=== PATIENT | female | born 2000 | race African-American/Black ===

== ENCOUNTER 2019-12-13 19:40 | Emergency (ER) | payer OTHER, SELFPAY ==
--- NOTE | 2019-12-13 20:40 | RAD REPORT ---
EXAM DESCRIPTION: RAD - Tib Fib Right - 12/13/2019 8:24 pm CLINICAL HISTORY: needle stick with possible foreign body COMPARISON: No comparisons FINDINGS: No bone or joint abnormality identified. In the anterolateral soft tissues lower right leg, anterior to the fibula, there is a 2 centimeter lo ng needle in the soft tissues. No bone involvement.
--- NOTE | 2019-12-13 20:47 | ER ---
Nurse's Notes [facility] Name: Saloni Harrington Age: 19 yrs Sex: Female : 2000 Arrival Date: 12/13/2019 Time: 19:42 Bed 19 Private MD: Diagnosis: Puncture wound with foreign body of lower leg-right Presentation: 12/12 19:49 Chief complaint: Patient states: "half a sewing needle stuck in my R leg". Coronavirus ca1 screen: Proceed with normal triage. Patient denies a cough. Patient denies shortness of breath or difficulty breathing. Patient denies measured and/or subjective temperature greater than 100.4F prior to today's visit. Patient denies travel on a cruise ship or to a country the [facility] currently lists as an affected area. Patient denies contact with known and/or suspected case of COVID-19. Ebola Screen: Patient negative for fever greater than or equal to 101.5 degrees Fahrenheit, and additional compatible Ebola Virus Disease symptoms Patient denies exposure to infectious person. Patient denies travel to an Ebola-affected area in the 21 days before illness onset. No symptoms or risks identified at this time. Initial Sepsis Screen: Does the patient meet any 2 criteria? No. Patient's initial sepsis screen is negative. Does the patient have a suspected source of infection? No. Patient's initial sepsis screen is negative. Risk Assessment: Do you want to hurt yourself or someone else? Patient reports no desire to harm self or others. Onset of symptoms was December 13, 2019. 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 - Social history:: Smoking status: Patient denies any tobacco usage or history of. Screenin:00 Abuse screen: Denies threats or abuse. Denies injuries from another. Nutritional wh screening: No deficits noted. Tuberculosis screening: No symptoms or risk factors identified. Fall Risk None identified. Assessment: 20:02 General: Appears in no apparent distress. Behavior is calm, cooperative, appropriate wh for age. Pain: Complains of pain in lateral aspect of right calf Pain does not radiate. Pain currently is 7 out of 10 on a pain scale. Quality of pain is described as aching. Neuro: Level of Consciousness is awake, alert, obeys commands, Oriented to person, place, time, situation, Appropriate for age. Cardiovascular: Capillary refill < 3 seconds. Respiratory: Airway is patent Respiratory effort is even, unlabored, Respiratory pattern is regular, symmetrical. GI: Abdomen is flat, non-distended. : No signs and/or symptoms were reported regarding the genitourinary system. EENT: No signs and/or symptoms were reported regarding the EENT system. Derm: Skin is intact, is healthy with good turgor, Skin is pink, warm \\T\\ dry. normal. Musculoskeletal: Circulation, motion, and sensation intact. 21:03 Reassessment: Patient appears in no apparent distress at this time. No changes from previously documented assessment. Patient and/or family updated on plan of care and expected duration. Pain level reassessed. Patient is alert, oriented x 3, equal unlabored respirations, skin warm/dry/pink. Vital Signs: 19:49 BP 126 / 84; Pulse 83; Resp 15 S; Temp 98.6(TE); Pulse Ox 97% on R/A; Weight 66.22 kg ca1 (R); Height 5 ft. 3 in. (160.02 cm) (R); Pain 8/10; 21:00 BP 118 / 78; Pulse 82; Resp 18; Pulse Ox 99% on R/A; wh 19:49 Body Mass Index 25.86 (66.22 kg, 160.02 cm) ca1 ED Course: 19:42 Patient arrived in ED. ds1 19:50 Triage completed. ca1 19:51 Arm band placed on right wrist. ca1 19:52 Juan David Maddox PA is PHCP. cp 19:52 Gabriele Goff MD is Attending Physician. cp 20:00 Patient has correct armband on for positive identification. Bed in low position. Call light in reach. Side rails up X 1. Pulse ox on. NIBP on. 20:04 Kristy Alexandra is Primary Nurse. wh 20:24 XRAY Tib Fib RIGHT In Process Unspecified. EDMS 20:44 Sergey Stephens MD is Referral Physician. cp 21:02 No provider procedures requiring assistance completed. Patient did not have IV access during this emergency room visit. Administered Medications: 20:13 Not Given (Patient Refused; Pt with updated vaccine): Tetanus-Diphtheria Toxoid Adult 0.5 ml IM once 20:50 Drug: HYDROcodone-acetaminophen 5 mg-325 mg 1 tabs {Note: RASS 0.} Route: PO; 21:04 Follow up: Response: No adverse reaction; Pain is decreased; RASS: Alert and Calm (0) Outcome: 20:45 Discharge ordered by MD. cp 21:02 Discharged to home via wheelchair, with friend. 21:02 Condition: stable 21:02 Condition: good 21:02 Discharge instructions given to patient, Instructed on discharge instructions, follow up and referral plans. no drinking with medication, no driving heavy equipment, medication usage, wound care, POC Demonstrated understanding of instructions, follow-up care, medications, wound care, Prescriptions given X 2. 21:04 Patient left the ED. Signatures: Dispatcher [employer] EDAL Colleen Najera ds1 Juan David Maddox, Kristy Keiht cp Mariah Preciado RN RN ca1
--- NOTE | 2019-12-13 20:47 | EDPHYS ---
Physician Documentation [facility] Name: Saloni Harrington Age: 19 yrs Sex: Female : 2000 Arrival Date: 12/13/2019 Time: 19:42 Bed 19 Private MD: ED Physician Gabriele Goff HPI: 12/12 20:00 This 19 yrs old Black Female presents to ER via Wheelchair with complaints of Foreign cp Body - In Leg. 20:00 The patient presents with needle stick with possible foreign body right lateral lower cp leg. The complaints affect the lateral aspect of right calf. 20:00 Patient reports she sat down on couch and noticed sewing needle pierced skin lateral cp right lower leg. Patient attempted to remove needle, but noticed needle broke and believes part of needle remains embedded in right lower leg. 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 - Social history:: Smoking status: Patient denies any tobacco usage or history of. ROS: 20:05 Skin: Positive for puncture, of the lateral aspect of right calf. cp 20:05 Eyes: Negative for injury, pain, redness, and discharge. cp 20:05 Constitutional: Negative for body aches, chills, fever. 20:05 Cardiovascular: Negative for chest pain. 20:05 Respiratory: Negative for cough, shortness of breath, wheezing. 20:05 Abdomen/GI: Negative for abdominal pain. 20:05 Neuro: Negative for altered mental status, headache, weakness. 20:05 All other systems are negative. Exam: 20:10 Constitutional: The patient appears in no acute distress, alert, awake, non-toxic, well cp developed, well nourished. 20:10 Skin: injury, that can be described as without bleeding, tender to palpation, mild cp swelling noted, puncture(s), that are deep, of the lateral aspect of right calf. Vital Signs: 19:49 BP 126 / 84; Pulse 83; Resp 15 S; Temp 98.6(TE); Pulse Ox 97% on R/A; Weight 66.22 kg ca1 (R); Height 5 ft. 3 in. (160.02 cm) (R); Pain 8/10; 21:00 BP 118 / 78; Pulse 82; Resp 18; Pulse Ox 99% on R/A; wh 19:49 Body Mass Index 25.86 (66.22 kg, 160.02 cm) ca1 MDM: 19:53 Patient medically screened. cp 20:30 Differential diagnosis: open fracture, foreign body, puncture wound. cp 20:45 Data reviewed: vital signs, nurses notes, radiologic studies, plain films, I have cp discussed the patient's presentation/case with the attending Emergency Department Physician; and as a result, I will discharge patient. 20:45 Counseling: I had a detailed discussion with the patient and/or guardian regarding: the cp historical points, exam findings, and any diagnostic results supporting the discharge/admit diagnosis, radiology results, the need for outpatient follow up, a general surgeon, to return to the emergency department if symptoms worsen or persist or if there are any questions or concerns that arise at home. Response to treatment: the patient's symptoms have markedly improved after treatment, VSS. Pain improved. Will discharge to home for continued monitoring. 12/12 20:51 Order name: Urine Dipstick--Ancillary (enter results) [facility] 12/12 20:51 Order name: Urine --Ancillary (enter results) [facility] 12/12 20:01 Order name: XRAY Tib Fib RIGHT; Complete Time: 20:43 cp 12/12 20:44 Interpretation: Report reviewed. 12/12 20:23 Order name: Urine Test (obtain specimen); Complete Time: 20:51 12/12 20:23 Order name: Urine Dipstick-Ancillary (obtain specimen); Complete Time: 20:51 cp 12/12 20:47 Order name: Wound Care; Complete Time: 20:55 cp 12/12 20:47 Order name: Crutches; Complete Time: 20:55 cp Administered Medications: 20:13 Not Given (Patient Refused; Pt with updated vaccine): Tetanus-Diphtheria Toxoid Adult wh 0.5 ml IM once 20:50 Drug: HYDROcodone-acetaminophen 5 mg-325 mg 1 tabs {Note: RASS 0.} Route: PO; wh 21:04 Follow up: Response: No adverse reaction; Pain is decreased; RASS: Alert and Calm (0) wh Disposition: 21:05 Chart complete. cp 12/13 03:12 Co-signature as Attending Physician, Gabriele Goff MD I agree with the assessment and tw4 plan of care. Disposition: 12/13/19 20:45 Discharged to Home. Impression: Puncture wound with foreign body of lower leg - right. - Condition is Stable. - Discharge Instructions: Puncture Wound. - Prescriptions for Keflex 500 mg Oral Capsule - take 1 capsule by ORAL route every 8 hours for 10 days; 30 capsule. Tylenol- Codeine #3 300-30 mg Oral Tablet - take 2 tablets by ORAL route every 6 hours As needed; 20 tablet. - Medication Reconciliation Form, Thank You Letter, Antibiotic Education, Prescription Opioid Use form. - Follow up: Sergey Stephens MD; When: 2 - 3 days; Reason: Wound Recheck. - Problem is new. - Symptoms have improved. Signatures: Dispatcher [employer] EDMS Juan David Maddox PA PA Kristy Alexandra Gabriele Goff MD MD tw4 Mariah Preciado RN RN ca1 Corrections: (The following items were deleted from the chart) 12/12 20:03 20:01 This 19 yrs old Black Female presents to ER via Wheelchair with complaints of cp Foreign Body - In Leg. cp 21:04 20:45 12/13/2019 20:45 Discharged to Home. Impression: Puncture wound with foreign body wh of lower leg - right. Condition is Stable. Forms are Medication Reconciliation Form, Thank You Letter, Antibiotic Education, Prescription Opioid Use. Follow up: Dr. Sergey Stephens; When: 2 - 3 days; Reason: Wound Recheck. Problem is new. Symptoms have improved. cp
[2019-12-13] MEDS ORDERED: HYDROCODONE/APAP 5/325 MG TAB ONE (20:48)
[2019-12-13 21:11] VITALS: TEMP 98.6
[2019-12-13 21:12] VITALS: BP 118/78; O2SAT 99
[2019-12-13 22:02] LABS: Urine Blood 3+ (NEG); Urine Glucose NEGATIVE (NEG); Urine Protein TRACE (NEG); Urine Specific Gravity >1.030 (1.005-1.030)
== END 2019-12-13 21:04 | disposition home or self-care (01) ==
LOC: ER 19:40
DX: S81.831A Puncture wound without foreign body, right lower leg, initial encounter (principal); W26.8XXA Contact with other sharp object(s), not elsewhere classified, initial encounter; W45.8XXA Other foreign body or object entering through skin, initial encounter; Y93.89 Activity, other specified; Y92.018 Other place in single-family (private) house as the place of occurrence of the external cause
CPT/HCPCS: 81003; 81025; 99284

== ENCOUNTER 2020-04-15 07:26 | Emergency (ER) | payer OTHER, SELFPAY ==
--- OUTSIDE RECORDS SUMMARY | 2020-04-15 07:52 | XMS REPORT | Summary of Care ---
:2000 Author Organization [facility] - Health Address [address] [place] [address] Care Team Providers Name Role Phone Pcp, Patient Does Not Have A Primary Care Provider +[id number] 0-0000 Encounter Details Date Type Department Care Team Description 03/19/2020 Orders Only [facility] Doctor Unassigned, No [address] [facility] [place] [address] [address] [place] [address] Allergies Not on Filedocumented as of this encounter (statuses as of 03/19/2020) Medications Not on filedocumented as of this encounter (statuses as of 03/19/2020) Active Problems Not on filedocumented as of this encounter (statuses as of 03/19/2020) Social History Tobacco Use Types Packs/Day Years Used Date Never Assessed Sex Assigned at Date Recorded Not on file documented as of this encounter Last Filed Vital Signs Not on filedocumented in this encounter Plan of Treatment Date Type Specialty Care Team Description 03/19/2020 Initial Visit [facility] Layla Hannah FNP Arrived [address] [place], [place] [address] [phone] Health Maintenance Due Date Last Done Comments VARICELLA VACCINES (1 of 2 - 2-dose 02/24/2000 childhood series) MENINGOCOCCAL B VACCINES (1 of 2 - 2009 Risk Bexsero 2-dose series) HPV VACCINES (1 - 2-dose series) 2010 Depression Screening 2011 WELL CARE VISIT: 12-21 YEARS 2011 (yearly) CHLAMYDIA SCREENING 2015 DTaP,Tdap,and Td Vaccines (1 - 2018 Tdap) PAP SMEAR 02/24/2020 INFLUENZA VACCINE (#1) 2020 MENINGOCOCCAL VACCINE Aged Out No longer eligible based on patient's age to complete this topic PNEUMOCOCCAL 0-64 YEARS COMBINED Aged Out No longer eligible based on SERIES patient's age to complete this topic documented as of this encounter Procedures Procedure Name Priority Date/Time Associated Diagnosis Comme nts REPORT OF Routine 03/19/2020 12:01 AM CDT documented in this encounter Results Not on filedocumented in this encounter Insurance Payer Benefit Plan / Subscriber ID Effective Phone Address [facility] [employer] Dates KYLE WRIGHT [id number] 2020-[address] Medic [place] [id number] [place]GED MEDICAID [place], [place] documented as of this encounter
--- OUTSIDE RECORDS SUMMARY | 2020-04-15 07:52 | XMS REPORT | Summary of Care ---
:2000 Author Organization [facility] Address [address] [place] [id number] Care Team Providers Name Role Phone Pcp, Patient Does Not Have A Primary Care Provider +[id number] 0-0000 Reason for Visit Reason Comments Appointment Referral/consult Encounter Details Date Type Department Care Team Description [facility] [facility]; [facility] Referral/consult [id number] [place], [place] [phone] Allergies No Known Allergiesdocumented as of this encounter (statuses as of 03/19/2020) Medications Medication Sig Dispensed Refills Start Date End Date Status inhaler,assist 0 Activ e device,accesory (INHALER,ASSIST DEVICES,ACCESS MISC) PNV 67-iron ps-folate Take 1 capsule by 30 capsule 11 0 Active no.1-dha (VITAFOL mouth daily. ULTRA) 29 mg iron- 1 mg-200 mg CapIndications: Supervision of high risk in first trimester documented as of this encounter (statuses as of 03/19/2020) Active Problems Problem Noted Date Supervision of high risk in first trimester 03/19/2020 History of marijuana use 03/19/2020 Bipolar 1 disorder 03/19/2020 Depression with anxiety 03/19/2020 Adopted 03/19/2020 Asthma affecting in first trimester 03/19/20 20 BMI 25.0-25.9,adult 03/19/2020 Estimated Date of Delivery Comments Yes 11/13/2020 Based on last menstr ual period of 02/07/2020 (Exact Date) documented as of this encounter (statuses as of 03/19/2020) Immunizations Name Administration Dates Next Due Influenza Virus Vaccine Quad .5 mL IM 6+ MO 03/19/2020 documented as of this encounter Social History Tobacco Use Types Packs/Day Years Used Date Never Smoker Smokeless Tobacco: Never Used Alcohol Use Drinks/Week oz/Week Comments Not Currently Estimated Date of Delivery Comments Yes 11/13/2020 Based on last menstr ual period of 02/07/2020 (Exact Date) Sex Assigned at Date Recorded Not on file documented as of this encounter Last Filed Vital Signs Not on filedocumented in this encounter Miscellaneous Notes Telephone Encounter - Ata Perez RN - 03/19/2020 4:51 PM CDTPatient notified to keep USG as scheduled. Pt verbalized understanding. ATA PEREZ RN 03/19/2020 4:51 PM Telephone Encounter - Layla Hannah FNP - 03/19/2020 4:43 PM CDTDoes not need US before next appointment. I probably told her we would get her appointment scheduledbefore her next visit, meaning the appointment would be made, not meaning the date of the US needed to be before next appointment. Telephone Encounter - Itzel Covarrubias - 03/19/2020 3:18 PM Ifeomasonny Harrington is a 20 year old female Patient is calling because she was told that her US needed to be before her appointment on 04/16 butwhen calling US they scheduled her for 05/06. They told her that they do not do US before 12 weeks and if it was needed before then that the provider needed to call them and verification. Please contactpatient if needed at [phone] (home) KF documented in this encounter Plan of Treatment Date Type Specialty Care Team Description 04/16/2020 Routine Visit [facility] Layla Hannah FNP [address] [place], [place] [address] [phone] 05/06/2020 Opticianry Teacher Visit Maternal Medicine 05/06/2020 Opticianry Teacher Visit [facility] Health Maintenance Due Date Last Done Comments PNEUMOCOCCAL 0-64 YEARS COMBINED 2005 SERIES (1 of 1 - PPSV23) INFLUENZA VACCINE (#1) 2020 Postponed from 03/03/2020 (Refused) HPV VACCINES (1 - 2-dose series) 03/10/2021 Postponed from 2010 ( or Rosibel astfeeding) CHLAMYDIA SCREENING 03/19/2021 03/19/2020 DTaP,Tdap,and Td Vaccines (1 - 03/19/2021 P ostponed from 2018 Tdap) (Alternative Gelacio delines) Depression Screening 03/19/2021 03/19/2020 MENINGOCOCCAL B VACCINES (1 of 2 - 03/19/2021 Postponed from 2009 Risk Bexsero 2-dose series) (Pre gnant or ) VARICELLA VACCINES (1 of 2 - 03/19/2021 Pos tponed from 02/24/2000 2-dose childhood series) (Pregna nt or ) WELL CARE VISIT: 12-21 YEARS 03/19/2021 03/19/2020 (yearly) PAP SMEAR 03/19/2023 03/19/2020 MENINGOCOCCAL VACCINE Aged Out No longer eligible based on patient's age to complete this topic documented as of this encounter Results Not on filedocumented in this encounter Insurance Payer Benefit Plan / Subscriber ID Effective Phone Address [employer] Dates KYLE WRIGHT [id number] 2020-Prese [address] Medic [place] [id number] [place] MED[place] documented as of this encounter
--- OUTSIDE RECORDS SUMMARY | 2020-04-15 07:52 | XMS REPORT | Summary of Care ---
:2000 Author Organization [facility] Address [address] [place] [address] Care Team Providers Name Role Phone Pcp, Patient Does Not Have A Primary Care Provider +[id number] 0-0000 Reason for Referral (Routine) Status Reason Specialty Diagnoses / Referred By Referred To Procedures Contact Contact New Request Maternal Diagnoses Supervision of high risk in first trimester Layla Hannah Procedures CONSULT MATERNAL MEDICINE ULTRASOUND Preferred Location: YANA Monroy [address] [place] [address] Reason for Visit Reason Comments Initial Visit Encounter Details Date Type Department Care Team Description 03/19/2020 Initial [facility]- Layla Hannah pervision of high risk in first trimester (Primary Dx); Visit [facility] History of marijuana use; [address] Bipolar 1 disorder; [facility] Depression with anxiety; [place], [place] Adopted; [id number] Asthma affecting in first trim rell; [phone] BMI 25.0-25.9,adult; [phone] Screening for v iral disease; (Fax) Need for prophy lactic vaccination and inoculation against influenza Allergies No Known Allergiesdocumented as of this [...] of this encounter Last Filed Vital Signs Vital Sign Reading Time Taken Comments Blood Pressure 135/79 03/19/2020 1:46 PM CDT Pulse 78 03/19/2020 1:46 PM CDT Temperature 37 C (98.6 F) 03/19/2020 1:46 PM CDT Respiratory Rate 16 03/19/2020 1:46 PM CDT Oxygen Saturation - - Inhaled Oxygen Concentration - - Weight 65.9 kg (145 lb 5 oz) 03/19/2020 1:46 PM CDT Height 160 cm (5' 3") 03/19/2020 1:46 PM CDT Body Mass Index 25.74 03/19/2020 1:46 PM CDT documented in this encounter Progress Notes Layla Hannah, COREMAKER BENCH - 03/19/2020 1:45 PM CDT Chief complaint: Chief Complaint Patient presents with Initial Visit CC: Initial Visit Saloni Harrington is a 20 year old, , Black or female. Patient's last menstrual period was 02/07/2020 (exact date). She is 5w6d with a susptected intrauterine . Her Estimated Date of Delivery: 11/13/20. She is being seen today for her first obstetrical visit. She has no complaints today. Denies current physical, emotional or sexual abuse. Patient denies recent foreign travel. Pt has a history of bipolar and anxiety. Reports last on meds in 2018. She reports that mood is currently stable and she declines need for medication. Denies SI. History of asthma, worse in childhood. Has had to be hospitalized in the past with exacerbations, last in 2017. Currently she is only using an albuterol rescue inhaler PRN, using about twice per week. She reports symptoms are generally worse at night and worsen in colder months. OB History T0 L0 SAB0 TAB0 Ectopic0 Multiple0 Live Births0 Name of Baby 1: Not recorded Date: Not recorded GA: Not recorded Delivery: Not recorded Apgar1: Not recorded Apgar5: Not recorded Living: Not recorded Histories OB History Para Term AB Living 1 SAB TAB Ectopic Multiple Live Births # Outcome Date GA Lbr Kenneth/2nd Weight Sex Delivery Anes PTL Lv 1 Current Past Medical History: Diagnosis Date Anxiety 2018 not on meds Asthma 1999 has rescue inhaler Bipolar 1 disorder 2018 not on meds Bipolar 1 disorder 03/19/2020 Depression 2018 not on meds IBS (irritable bowel syndrome) 2017 Substance abuse 2019 smokes marijuana occasionaly, reports quit on 03/14/2020 Family History Adopted: Yes Problem Relation Age of Onset Asthma Sister Heart Sister Family Status Relation Name Status Sis Alive History reviewed. No pertinent surgical history. Social History Socioeconomic History Marital status: Single Spouse name: Not on file Number of children: Not on file Years of education: Not on file Highest education level: Not on file Occupational History Not on file Social Needs Financial resource strain: Not on file Food insecurity Worry: Not on file Inability: Not on file Transportation needs Medical: Not on file Non-medical: Not on file Tobacco Use Smoking status: Never Smoker Smokeless tobacco: Never Used Substance and Sexual Activity Alcohol use: Not Currently Drug use: Yes Types: Marijuana Comment: smoked last 03/14/2020 Sexual activity: Yes Partners: Male control/protection: None Comment: Last intercourse: 03/17/2020 Lifestyle Physical activity Days per week: Not on file Minutes per session: Not on file Stress: Not on file Relationships Social connections Talks on phone: Not on file Gets together: Not on file Attends protestant service: Not on file Active member of club or organization: Not on file Attends meetings of clubs or organizations: Not on file Relationship status: Not on file Intimate partner violence Fear of current or ex partner: Not on file Emotionally abused: Not on file Physically abused: Not on file Forced sexual activity: Not on file Other Topics Concern Not on file Social History Narrative Patient lives alone. Patient feels safe at home. Social History Substance and Sexual Activity Sexual Activity Yes Partners: Male control/protection: None Comment: Last intercourse: 03/17/2020 Genetic Screen Autism / Mental Retardation: No Home Disease: No Congenital Heart Defect: No Cystic Fibrosis: No Down Syndrome: No Familial Dysautonomia: No Hemophilia or other Blood Disorders: No Dustin Chorea: No Maternal Metabolic Disorder--specify (eg. Type 1 Diabetes, PKU): No Muscular Dystrophy: No Neural Tube Defect: No Recurrent Loss or a Stillbirth: No Sickle Cell Disease or Trait: No Master Sachs: No Teratological Substances (specify type & strength/dose) since LMP: No Thalassemia: No Other Inherited Genetic or Chromosomal Disorder (specify): No No Significant History of Genetic Disorders: No Significant History of Genetic Disorders Labs Labs are pending. Radiology Radiology pending. Allergies Saloni has No Known Allergies. Medications Saloni has a current medication list which includes the following prescription(s): inhaler,assist device,accesory and vitafol ultra. Review of Systems Constitutional: Negative. Negative for appetite change, fatigue and fever. HENT: Negative. Eyes: Negative. Negative for visual disturbance. Respiratory: Negative. Breasts: Negative. Cardiovascular: Negative. Negative for palpitations and leg swelling. Gastrointestinal: Negative. Negative for abdominal pain, constipation, diarrhea, nausea and vomiting. Genitourinary: Negative. Negative for dysuria, vaginal bleeding, vaginal discharge and pelvic pain. Musculoskeletal: Negative. Skin: Negative. Negative for rash. Neurological: Negative. Negative for dizziness, light-headedness and headaches. Psychiatric/Behavioral: Negative. Endocrine: Endocrine negative BP 135/79 (BP Location: Right arm, Patient Position: Sitting, BP CUFF SIZE: Adult Medium) | Pulse 78 | Temp 37 C (98.6 F) (Oral) | Resp 16 | Ht 5' 3" (1.6 m) | Wt 145 lb 5 oz (65.9 kg) | LMP 02/07/2020 (Exact Date) | BMI 25.74 kg/m Pregravid BMI: 23.92 Physical Exam Vitals reviewed. Constitutional: She is oriented to person, place, and time. She appears well- developed and well-nourished. Her body habitus is normal. See flowsheet Neck: No thyroid nodules and no thyromegaly palpated. Cardiovascular: Regular rate and rhythm. No murmur auscultated. No peripheral edema present. Pulmonary/Chest: Breath sounds clear to auscultation. Normal inspiratory effort. Abdominal: Abdomen is soft. No mass palpated. No tenderness present. There is no hepatosplenomegaly. Neuro/Psychiatric: She has a normal mood and affect. She is oriented to person, place, and time. Skin: Skin normal. No lesion and no rash present. Genitourinary Comments: Chaperoned by: Donny Chun MA Breast: Right breast exhibits no mass, no nipple discharge and no tenderness. Left breast exhibits no mass, no nipple discharge and no tenderness. Normal left breast and normal right breast External genitalia: Normal external genitalia appropriate for age. No labial lesion. Bladder: No tenderness. Normal bladder Vagina:Normal vagina. No lesion inspected. No abnormal vaginal discharge found. No lesions in thevagina. Cervix: Normal cervix. No lesion. No tenderness and no discharge present. Uterus: Uterus is normal size, normal position and non-tender. Normal uterus Adnexa: Right adnexa without tenderness. Left adnexa without tenderness. Normal left adnexa and normal right adnexa PHYSICAL: General Exam: HEENT: Normal Thyroid: Normal Lymph Node: Normal Neurological: Normal Heart: Normal Lungs: Normal Breasts: Normal Abdomen: Normal Skin: Normal Extremities: Normal Pelvic Exam: Vulva: Normal Vagina: Normal Cervix: Normal Membrane status: Intact Uterus: 6 Weeks Adnexa: Normal Rectum: Normal Spines: Average Subpubic Arch: Normal Assessment/Plan 1. Supervision of high risk in first trimester 5w6d by LMP New OB packet reviewed TWG discussed Discussed recommendation for social distancing and PPE use Initiate Vitamins Increase Fluid Intake. Minimum of 8 water bottles daily. Dating US and NT scan ordered - POCT TEST - POCT URINALYSIS W/O SPECIFIC GRAVITY - PNV 67-iron ps-folate no.1-dha (VITAFOL ULTRA) 29 mg iron- 1 mg-200 mg Cap; Take 1 capsule by mouth daily. Dispense: 30 capsule; Refill: 11 - POCT URINALYSIS W/O SPECIFIC GRAVITY; Standing - CONSULT MATERNAL MEDICINE ULTRASOUND Preferred Location: [place] - CBC WITH DIFF - HEPATITIS B SURFACE ANTIGEN - HIV 1/2 AG-AB WITH REFLEX - WORKUP, BLOOD BANK - RUBELLA SCREEN (ELOY) IGG - GALV ONLY - SYPHILIS IGG/IGM - URINE CULTURE - VZV ANTIBODY SCREEN - PAP Smear-Liquid Based - GC & CHLAMYDIA AMPLIFIED ASSAY - TRICHOMONAS AMPLIFIED ASSAY - SICKLE CELL SCREEN 2. History of marijuana use Patient reports cessation, continued cessation encouraged 3. Bipolar 1 disorder Currently stable, not on meds Continue to monitor 4. Depression with anxiety Currently stable, not on meds Continue to monitor 5. Adopted 6. Asthma affecting in first trimester Continue albuterol inhaler PRN Patient instructed to notify clinic if using rescue inhaler more than 2 times per week. Would need referral to high risk at that time. 7. BMI 25.0-25.9,adult The patient is asked to make an attempt to improve diet and exercise patterns to aid in medical management of this problem. 8. Screening for viral disease Per guidelines - SARS-COV-2 IGG 9. Need for prophylactic vaccination and inoculation against influenza Administered today. VSS provided. - FLU VACC([id number]), 6+ MONTHS, IM, QUAD (FLUZONE/FLULAVAL/FLUARIX) Return to clinic in 4 weeks. Discussed treatment options. Medications as ordered. Reviewed patient instructions and provided printed copy. at 5w6d This visit did not involve counseling and coordination that comprised more than 50% of the visit time. Juan Diego Lantigua RN - 03/19/2020 1:45 PM CDTPatient is 20 year old female here for current . Patient is . 1) Previous delivery methods N/A 2) Patient is not experiencing cramping 3) Patient is not experiencing bleeding. 4) LMP 02/07/2020 5) Last Pap was: Never Results: N/A 6) Have you had a flu vaccine this season? No, patient denies 7) PPD candidate? No 8) Patient denies any complaints 9) Patient denies history of physical, emotional, or sexual abuse. Patient states she currently feels safe at home. New ob packet given and discussed with patient. JUAN DIEGO LANTIGUA RN 03/19/2020 1:57 PM documented in this encounter Plan of Treatment Date Type Specialty Care Team Description 04/16/2020 Routine Visit OB Satellites Layla Hannah, COREMAKER BENCH [address] [place], [place] [address] [phone] Name Type Priority Associated Diagnoses Date/Ti me SARS-COV-2 IGG LAB Routine Screening for viral 2019 2:36 PM disease CDT CBC WITH DIFF LAB Routine Supervision of high risk 2:37 PM in first CDT trimester HEPATITIS B SURFACE LAB Routine Supervision of high r isk 03/19/2020 2:37 PM ANTIGEN in first CDT trimester HIV 1/2 AG-AB WITH REFLEX LAB Routine Supervision of high risk 03/19/2020 2:37 PM in first CDT trimester RUBELLA SCREEN (ELOY) LAB Routine Supervision of hig h risk 03/19/2020 2:37 PM IGG in first CDT trimester GALV ONLY - SYPHILIS LAB Routine Supervision of high risk 03/19/2020 2:37 PM IGG/IGM in first CDT trimester URINE CULTURE LAB Routine Supervision of high risk 2:11 PM in first CDT trimester VZV ANTIBODY SCREEN LAB Routine Supervision of high r isk 03/19/2020 2:37 PM in first CDT trimester PAP Smear-Liquid Based LAB Routine Supervision of hig h risk 03/19/2020 2:11 PM in first CDT trimester GC & CHLAMYDIA AMPLIFIED LAB Routine Supervision of h igh risk 03/19/2020 2:11 PM ASSAY in first CDT trimester TRICHOMONAS AMPLIFIED LAB Routine Supervision of high risk 03/19/2020 2:11 PM ASSAY in first CDT trimester SICKLE CELL SCREEN LAB Routine Supervision of high ri sk 03/19/2020 2:37 PM in first CDT trimester Name Type Priority Associated Diagnoses Order S chedule POCT URINALYSIS W/O LAB Routine Supervision of high r isk 20 Occurrences starting SPECIFIC GRAVITY in first 03/19 until trimester 03/19/2021 WORKUP, BLOOD LAB Routine Supervision of hig h risk Ordered: 03/19/2020 BANK in first trimester Health Maintenance Due Date Last Done Comments INFLUENZA VACCINE (#1) 2020 Postponed from 03/03/2020 [...] Name Priority Date/Time Associated Diagnosis Comme nts FLU VACC Routine 03/19/2020 2:21 Need for prophylactic ([id number]), 6+ PM CDT vaccination and MONTHS, IM, QUAD inoculation against influenza POCT URINALYSIS W/O Routine 03/19/2020 1:45 Supervision of hi gh Results for this SPECIFIC GRAVITY PM CDT risk in proced ure are in first trimester the results section. POCT TEST Routine 03/19/2020 1:45 Supervision of hi gh Results for this PM CDT risk in procedure are in first trimester the results section. documented in this encounter Results POCT URINALYSIS W/O SPECIFIC GRAVITY (03/19/2020 1:45 PM CDT) Pathologist Sig nature POCT PH U 7 5 - 8 mg/dl POCT U LEUK EST trace Negative - Negative POCT U NIT neg Negative - Negative POCT U PROT trace Negative - Negative POCT U GLU neg Negative - Negative POCT U KETONE neg Negative - Negative POCT U BLD neg Negative - Negative Specimen Urine - URINE, CLEAN CATCH POCT TEST (03/19/2020 1:45 PM CDT) Pathologist Sig nature POCT PREG Positive On board controls acceptable Yes with C Line POCT PREG LOT # POCT PREG TEST DATE Specimen Urine - URINE, CLEAN CATCH documented in this encounter Visit Diagnoses Diagnosis Supervision of high risk in rst trimester - Primary Unspecified high-risk History of marijuana use Bipolar 1 disorder Bipolar I disorder, most recent episode (or current) unspecified Depression with anxiety Dysthymic disorder Adopted Encounters for other specified administr ative purpose Asthma affecting in first trim rell BMI 25.0-25.9,adult Body Mass Index 25.0-25.9, adult Screening for viral disease Special screening examination for unspec ified viral disease Need for prophylactic vaccination and in oculation against influenza documented in this encounter Insurance Payer Benefit Plan / Subscriber ID Effective Phone Address T ype Group Dates KYLE WRIGHT [id number] 2020-Brisa DONATO Medic [place] [id number] MANAGED MEDICAID [place], [place] documented as of this encounter
--- OUTSIDE RECORDS SUMMARY | 2020-04-15 07:52 | XMS REPORT | Summary of Care ---
:1999 Author Organization [facility] Address [address] [place] [address] Care Team Providers Name Role Phone Pcp, Patient Does Not Have A Primary Care Provider +1-000-00 0-0000 Reason for Referral (Routine) Status Reason Specialty Diagnoses / Referred By Referred To Procedures Contact Contact New Request Maternal Diagnoses Asthma affecting in first trimester Bipolar 1 disorder Depression with anxiety Layla Hannah Medicine Procedures CONSULT/REFERRAL MATERNAL MEDICINE FACULTY/FELLOW Preferred location: YANA Monroy [address] [place] [address] Reason for Visit Reason Comments Assessment using inhaler more than usua l Encounter Details Date Type Department Care Team Description 03/24/2020 Telephone [facility]- Layla Hannah, Wilder essment (using [place] EX[employer]. CREATIVE DIRECTOR inhaler more than [address] usual) [place] [phone] Allergies No Known Allergiesdocumented as of this encounter (statuses as of 03/24/2020) Medications Medication Sig Dispensed Refills Start Date End Date Status inhaler,assist 0 Activ e device,accesory (INHALER,ASSIST DEVICES,ACCESS MISC) PNV 67-iron ps-folate Take 1 capsule by 30 capsule 11 0 Active no.1-dha (VITAFOL mouth daily. ULTRA) 29 mg iron- 1 mg-200 mg CapIndications: Supervision of high risk in first trimester albuterol 90 Inhale 2 Puffs 8.5 g 1 03/24/2020 A ctive mcg/actuation every 6 (six) inhalerIndications: hours as needed Asthma affecting for Wheezing or in first Shortness of trimester Breath. documented as of this encounter (statuses as of 03/24/2020) Active Problems Problem Noted Date Supervision of high risk in first trimester 03/19/2020 History of marijuana use 03/19/2020 Bipolar 1 disorder 03/19/2020 Depression with anxiety 03/19/2020 Adopted 03/19/2020 Asthma affecting in first trimester 03/19/20 20 BMI 25.0-25.9,adult 03/19/2020 Estimated Date of Delivery Comments Yes 11/13/2020 Based on last menstr ual period of 02/07/2020 (Exact Date) documented as of this encounter (statuses as of 03/24/2020) Immunizations Name Administration Dates Next Due Influenza [...] this encounter Miscellaneous Notes Telephone Encounter - Misty Mirza - 03/24/2020 3:18 PM CDTPt called and scheduled for . elephone Encounter - Patsy Loaiza LVN - 03/24/2020 1:29 PM CDT Saloni Harrington is a 20 year old female Patient informed of new orders and recommendations.informed pss will call to schedule appointment with [facility], ER warnings given, verbalized understanding. Telephone Encounter - Layla Hannah FNP - 03/24/2020 1:17 PM CDT Discontinue Primatene. Rx for albuterol inhaler sent to pharmacy on file. Referral placed to M, please schedule with high risk provider for evaluation on need of maintenance asthma medication. ER warnings for sustained shortness of breath, difficulty breathing, or symptoms not relieved by rescue inhaler. Telephone Encounter - Juan Diego Lantigua RN - 03/24/2020 1:12 PM CDTPatient called, states using inhaler 4 x a week now. Needs refill on inhaler. Patient states she isusing otc primatene mist inhaler. Patient denies any chest tightness or difficulty breathing. Stateshas intermittent SOB. Advised would route to provider for recommendations. JUAN DIEGO LANTIGUA RN 03/24/2020 1:13 PM Telephone Encounter - Itzel Covarrubias - 03/24/2020 12:13 PM Angel Harrington is a 20 year old female Patient states she needs to use the inhaler more times than usual. Requesting to speak to nurse. 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 Operator Visit Maternal Medicine 05/06/2020 Jumpbasting Machine Operator Visit OB Satellites Lab/Pedi, Pea-Rmchp Health Maintenance Due Date Last Done Comments PNEUMOCOCCAL 0-64 YEARS 2005 COMBINED SERIES (1 of 1 - PPSV23) HPV VACCINES (1 - 2-dose 03/10/2021 Postpon ed from 2010 series) ( or ) CHLAMYDIA SCREENING 03/19/2021 03/19/2020, 03/19/2020 DTaP,Tdap,and Td Vaccines (1 03/19/2021 Pos tponed from 2018 - Tdap) (Alternative Gelacio delines) Depression Screening 03/19/2021 03/19/2020 MENINGOCOCCAL B VACCINES (1 03/19/2021 Post poned from 2009 of 2 - Risk Bexsero 2-dose (Preg nant or series) ) WELL CARE VISIT: 12-21 YEARS 03/19/2021 03/19/2020 (yearly) PAP SMEAR 03/19/2023 03/19/2020 INFLUENZA VACCINE Completed 03/19/2020 MENINGOCOCCAL VACCINE Aged Out No longer eligible based on patient's age to complete this to [facility] documented as of this encounter Results Not on filedocumented in this encounter Visit Diagnoses Diagnosis Asthma affecting in first trim rell - Primary Bipolar 1 disorder Bipolar I disorder, most recent episode (or current) unspecified Depression with anxiety Dysthymic disorder documented in this encounter Insurance Payer Benefit Plan / Subscriber ID Effective Phone Address T [facility] Group Dates KYLE WRIGHT [id number] 2020-Brisa [address] Medic aid [facility] [place] [id number] MANAGED MEDICAID [place] documented as of this encounter
--- OUTSIDE RECORDS SUMMARY | 2020-04-15 07:52 | XMS REPORT | Summary of Care ---
:1999 Author Organization [facility] Address [address] [place] [address] Care Team Providers Name Role Phone Pcp, Patient Does Not Have A Primary Care Provider +1-000-00 0-0000 Reason for Referral (Routine) Status Reason Specialty Diagnoses / Referred By Referred To Procedures Contact Contact New Request Maternal Diagnoses Supervision of high risk in first trimester Layla Hannah Procedures CONSULT MATERNAL MEDICINE ULTRASOUND Preferred Location: YANA Monroy [address] [facility] [place] [address] Reason for Visit Reason Comments Initial Visit Encounter Details Date Type Department Care Team Description 03/19/2020 Initial [facility]- Layla Hannah pervision of high risk in first trimester (Primary Dx); Visit YANA Monroy History of marijuana use; [address] Bipolar 1 disorder; [facility] A Depression with anxiety; [place], [place] Adopted; [id number] Asthma affecting in first trim rell; [phone] BMI 25.0-25.9,adult; [phone] Screening for v iral disease; (Fax) Need [...] in this encounter Progress Notes Layla Hannah, LEDGE MAN - 03/19/2020 1:45 PM CDT Chief complaint: [...] file Gets together: Not on file Attends yazidism service: Not on file Active member of [...] - CONSULT MATERNAL MEDICINE ULTRASOUND Preferred Location: [place] - CBC WITH DIFF - HEPATITIS B [...] influenza Administered today. VSS provided. - FLU VACC([id number]), 6+ MONTHS, IM, QUAD (FLUZONE/FLULAVAL/FLUARIX) Return to clinic in 4 weeks. Discussed treatment options. Medications as ordered. Reviewed patient instructions and provided printed copy. at 5w6d This visit did not involve counseling and coordination that comprised more than 50% of the visit time. Juan Diego Lnatigua RN - 03/19/2020 1:45 PM CDTPatient is [...] 04/16/2020 Routine Visit OB Satellites Layla Hannah, LEDGE MAN [address] [place], [place] [address] [phone] Name Type Priority Associated Diagnoses Date/Ti me [...] VACC Routine 03/19/2020 2:21 Need for prophylactic ([id number]), 6+ PM CDT vaccination and MONTHS, IM, [...] Address T ype Group Dates KYLE WRIGHT [id number] 2020-Brisa DONATO Medic aid [place] [phone] [place] MEDICA[place] documented as of this encounter
--- OUTSIDE RECORDS SUMMARY | 2020-04-15 07:53 | XMS REPORT | Summary of Care ---
:1999 Author Organization [facility] Address [address] [place] [address] Care Team Providers Name Role Phone Pcp, Patient Does Not Have A Primary Care Provider +1-000-00 0-0000 Reason for Visit Reason Comments Rx Concern/Question prior auth needed for albute rol Encounter Details Date Type Department Care Team Description 03/25/2020 Telephone [facility]- Layla Hannah, Rx Concern/Question [place] GREY IRON MOLDER (prior auth needed for [address]buterol) [place], [place] [phone] Allergies No Known Allergiesdocumented as of this encounter (statuses as of 03/26/2020) Medications Medication Sig Dispensed Refills Start Date [...] as of this encounter (statuses as of 03/26/2020) Active Problems Problem Noted Date Supervision of high risk in first trimester 03/19/2020 History of marijuana use 03/19/2020 Bipolar 1 disorder 03/19/2020 Depression with anxiety 03/19/2020 Adopted 03/19/2020 Asthma affecting in first trimester 03/19/20 20 BMI 25.0-25.9,adult 03/19/2020 Estimated Date of Delivery Comments Yes 11/13/2020 Based on last menstr ual period of 02/07/2020 (Exact Date) documented as of this encounter (statuses as of 03/26/2020) Immunizations Name Administration Dates Next Due Influenza [...] Assigned at Date Recorded Not on file COVID-19 Exposure Response Date Recorded In the last month, have you been in contact with No / Unsure 03/26/2020 10:44 AM CDT someone who was confirmed or suspected to have Coronavirus / COVID-19? documented as of this encounter Last Filed Vital Signs Not on filedocumented in this encounter Miscellaneous Notes Telephone Encounter - Juan Diego Lantigua RN - 03/26/2020 2:10 PM CDT Submitted PA on patient's inhaler on cover my meds. Awaiting response. JUAN DIEGO LANTIGUA RN 03/26/2020 2:10 PM Telephone Encounter - Elisabeth Perez - 03/25/2020 9:40 AM CDTPrior auth needed for albuterol sulfate hfa Go to covermymeds HANNA [id number] signed by Elisabeth Perez at 03/25/2020 9:42 AM CDT documented in this encounter Plan of Treatment Date Type Specialty Care Team Description 04/16/2020 Routine Visit [facility] Layla Hannah , GREY IRON MOLDER [address] [place], [place] [address] [phone] 05/06/2020 Lithopone Mill Worker Visit Maternal Medicine 05/06/2020 Lithopone Mill Worker Visit [facility] Lab/Pedi, Pea-Rmchp Health Maintenance [...] on patient's age to complete [facility] documented as of this encounter Results Not on filedocumented in this encounter Insurance Payer Benefit Plan / Subscriber ID Effective Phone Address T e Group Dates KYLE WRIGHT [id number] 2020-Brisa DONATO Medic [place] [id number] [place] MED[place], [place] documented as of this encounter
--- OUTSIDE RECORDS SUMMARY | 2020-04-15 07:53 | XMS REPORT | Continuity of Care Document ---
:1999 Author Organization [facility] t Address [address] [place] [address] Care Team Providers Name Role Phone Ashanti Avila Attending Clinician Risk Attending Clinician Unavailable Problems This patient has no known problems. Allergies, Adverse Reactions, Alerts This patient has no known allergies or adverse reactions. Medications This patient has no known medications. Procedures This patient has no known procedures. Encounters Start End Encounter Admission Attending Care Care Encounter Source Date/Time Date/Time Type Type Clinicians Facility Department ID 2020-04-01 2020-04-01 Telephone MANUEL Hannah [id number] 00:00:00 00:00:00 Layla Burrell RETAIL SERVICE TECHNICIAN [id number] REGIONAL [id number] MATERNAL [id number] & CHILD 107 [facility] 2020-03-30 2020-03-30 Telephone MANUEL Hannah [id number] 00:00:00 00:00:00 Layla Burrell RETAIL SERVICE TECHNICIAN [id number] REGIONAL [id number] MATERNAL [id number] & CHILD 107 [facility] 2020-03-26 2020-03-26 Routine MANUEL Pandya [id number] 10:30:10 10:55:08 Ang-Rmchp-N RETAIL SERVICE TECHNICIAN [id number] Visit p/High REGIONAL [id number] MATERNAL [id number] & CHILD 107 [facility] 2020-03-25 2020-03-25 Telephone MANUEL Hannah [id number] 00:00:00 00:00:00 Layla N RETAIL SERVICE TECHNICIAN [id number] REGIONAL [id number] MATERNAL [id number] & CHILD 107 [facility] 2020-03-24 2020-03-24 [facility] [id number] 00:00:00 00:00:00 Layla N RETAIL SERVICE TECHNICIAN [id number] REGIONAL [id number] MATERNAL [id number] & CHILD 107 [facility] 2020-03-19 2020-03-19 Initial [facility] [id number] 13:25:33 14:35:39 Layla N RETAIL SERVICE TECHNICIAN [id number] Visit REGIONAL [id number] MATERNAL [id number] & CHILD 107 [facility] 2020-03-19 2020-03-19 [facility] [id number] 00:00:00 00:00:00 Layla N RETAIL SERVICE TECHNICIAN [id number] REGIONAL [id number] MATERNAL [id number] & CHILD 107 [facility] Results This patient has no known results.
--- OUTSIDE RECORDS SUMMARY | 2020-04-15 07:53 | XMS REPORT | Summary of Care ---
:1999 Author Organization [facility] Address [address] [place] [address] Care Team Providers Name Role Phone Pcp, Patient Does Not Have A Primary Care Provider +1-000-00 0-0000 Reason for Visit Reason Comments ABNORMAL PAP Encounter Details Date Type Department Care Team Description 03/30/2020 Telephone [facility] RM[facility]P- A Layla Mercado, YANA ABNORMAL PAP [address] [place] [address]55 [facility] [phone] [place], [place] [address] [phone] Allergies No Known Allergiesdocumented as of this encounter (statuses as of 03/30/2020) Medications Medication Sig Dispensed Refills Start Date [...] or in first Shortness of trimester Breath. montelukast Take 1 tablet by 30 tablet 3 03/26/2020 Active (SINGULAIR) 10 mg mouth daily. 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 03/30/2020 Supervision of high risk in first trimester 03/19/2020 History of marijuana use 03/19/2020 Bipolar 1 disorder 03/19/2020 Depression with anxiety 03/19/2020 Adopted 03/19/2020 Asthma affecting in first trimester 03/19/20 20 BMI 25.0-25.9,adult 03/19/2020 Estimated Date of Delivery Comments Yes 11/13/2020 Based on last menstr ual period of 02/07/2020 (Exact Date) documented as of this encounter (statuses as of 03/30/2020) Immunizations Name Administration Dates Next Due Influenza [...] Encounter - Juan Diego Lantigua RN - 03/30/2020 2:28 PM CDTCalled patient, notified of ascus pap and follow-up in 1 year. Patient verbalized understanding. JUAN DIEGO LANTIGUA RN 03/30/2020 2:28 PM Telephone Encounter - JENIFER Gonsales - 03/30/2020 11:48 AM CDTPt is calling requesting call back, to go over results elephone Encounter - Layla Hannah FNP - 03/30/2020 11:22 AM CDTASCUS pap, not concerning at this time. Recommendation is to repeat pap smear in 1 year. documented in this encounter Plan of Treatment Date Type Specialty Care Team Description 04/16/2020 Routine Visit [facility] Layla Hannah FNP [address] [place] [address] [phone] 05/06/2020 Artist Scientific Visit Maternal Medicine 05/06/2020 Artist Scientific Visit [facility] Lab/Pedi, [facility]-Rm[facility] Health Maintenance [...] on patient's age to complete this to [facility] documented as of this encounter Results Not on filedocumented in this encounter Visit Diagnoses Diagnosis Atypical squamous cell of undetermined s ignificance of cervix - Primary Papanicolaou smear of cervix with atypic al squamous cells of undetermined significance (ASC-US) documented in this encounter Insurance Payer Benefit Plan / Subscriber ID Effective Phone Address T e Group Dates KYLE WRIGHT [id number] 2020-Brisa [address] Medic [place] [id number] [place] MED[place] documented as of this encounter
--- OUTSIDE RECORDS SUMMARY | 2020-04-15 07:53 | XMS REPORT | Summary of Care ---
:1999 Author Organization [facility] Address [address] [place] [address] Care Team Providers Name Role Phone Pcp, Patient Does Not Have A Primary Care Provider +1-000-00 0-0000 Reason for Visit Reason Comments MFM Visit Encounter Details Date Type Department Care Team Description 03/26/2020 Routine [facility]- Dia, Pascual Uriarte, [facility] [address] [place] [address] Asthma affecting in first trim rell (Primary Dx); Visit [facility] Keq-Boqdw-Hm/High Bipolar 1 disorder; [address] [facility] Supervisi on of high [place] in [place] [address] Allergies No Known Allergiesdocumented as of [...] Sign Reading Time Taken Comments Blood Pressure 127/76 03/26/2020 10:44 AM CDT Pulse 64 03/26/2020 10:44 AM CDT Temperature 36.9 C (98.5 F) 03/26/2020 10:44 AM CDT Respiratory Rate 16 03/26/2020 10:44 AM CDT Oxygen Saturation 100% 03/26/2020 10:44 AM CDT Inhaled Oxygen Concentration - - Weight 65 kg (143 lb 6 oz) 03/26/2020 10:44 AM CDT Height 160 cm (5' 3") 03/26/2020 10:44 AM CDT Body Mass Index 25.4 03/26/2020 10:44 AM CDT documented in this encounter Progress Notes Dariela Alvares, RUBEN - 03/26/2020 10:30 AM CDT Chief complaint: Chief Complaint Patient presents with MFM Visit HPI Saloni Harrington is a 20 year old BF who is 6w6d with IUP. Her Estimated Date of Delivery: 11/13/20 by LMP. Asthma-on Albuterol inhaler prn. States Asthma controlled currently. Denies headache, n/v, visual changes, sob,cp, ruq pain, bleeding,lof and pain. Histories OB History Para Term AB Living 1 SAB TAB Ectopic Multiple Live Births # Outcome Date GA Lbr Kenneth/2nd Weight Sex Delivery Anes PTL Lv 1 Current Past Medical History: Diagnosis Date Anxiety 2017 not on meds Asthma 1998 has rescue inhaler Bipolar 1 disorder 2017 not on meds Bipolar 1 disorder 03/19/2020 Depression 2018 not on meds IBS (irritable bowel syndrome) 2017 Substance abuse 2019 smokes marijuana occasionaly, reports quit on 03/14/2020 Family History Adopted: Yes Problem Relation Age of Onset Asthma Sister Heart Sister Family Status Relation Name Status Sis Alive No past surgical history on file. Social History Socioeconomic History Marital status: Single [...] file Gets together: Not on file Attends cheondoism service: Not on file Active member of [...] Male control/protection: None Comment: Last intercourse: 03/17/2020 Labs No new labs Radiology No new radiology. Allergies Saloni has No Known Allergies. Medications Saloni has a current medication list which includes the following prescription(s): montelukast, albuterol, inhaler,assist device,accesory, and vitafol ultra. Review of Systems See HPI BP 127/76 (BP Location: Right arm, Patient Position: Sitting, BP CUFF SIZE: Adult Medium) | Pulse 64 | Temp 36.9 C (98.5 F) (Oral) | Resp 16 | Ht 5' 3" (1.6 m) | Wt 143 lb 6 oz (65 kg) | LMP 02/07/2020 (Exact Date) | SpO2 100% | BMI 25.40 kg/m Pregravid BMI: 25.69 Physical Exam CONSTITUTIONAL: no apparent distress, appearing age-appropriate. GASTROINTESTINAL: abdomen soft, nontender, . NEUROLOGICAL/PSYCHIATRIC: alert, awake, and oriented x 3. Normal mood and affect. EXTREMITIES: No calf tenderness bilaterally.no pitting edema bilaterally. Musculoskeletal: no clubbing, cyanosis or edema, peripheral pulses 2+ in all extremities Lungs CTAB O2 sats on RA 100% Assessment/Plan at 6w6d Asthma affecting in first trimester (primary encounter diagnosis) Comment: on Albuterol inhaler prn. Not using much as controlled at this time. O2 sat on RA today 100% Lungs CTAB Denies any hx of intubation Plan: montelukast (SINGULAIR) 10 mg tablet Bipolar 1 disorder Comment: no meds currently. Denies S/H/I Plan: warnings given Supervision of high risk in first trimester Comment: 6w6d Plan: POCT URINALYSIS W/O SPECIFIC GRAVITY Has NT and dating usg appointment 05/06/20 This visit did not involve counseling and coordination that comprised more than 50% of the visit time. documented in this encounter Plan of Treatment Date Type Specialty Care Team Description 04/16/2020 Routine Visit [facility] Layla Hannah , HEALTH AND SAFETY DIRECTOR [address] [place], [place] [address] [phone] 05/06/2020 Property Economist Visit Maternal Medicine 05/06/2020 Property Economist Visit [facility] Lab/Pedi, Pea-Rmchp Health Maintenance [...] on patient's age to complete this to [facility] documented as of this encounter Procedures Procedure Name Priority Date/Time Associated Diagnosis Comme nts POCT URINALYSIS W/O Routine 03/26/2020 10:45 Supervision of [facility] Results for this SPECIFIC GRAVITY AM CDT risk in proced ure are in first trimester the results section. documented in this encounter Results POCT URINALYSIS W/O SPECIFIC GRAVITY (03/26/2020 10:45 AM CDT) Pathologist Sig nature POCT PH U 7 5 - 8 mg/dl POCT U LEUK EST neg Negative - Negative POCT U NIT neg Negative - Negative POCT U PROT trace Negative - Negative POCT U GLU neg Negative - Negative POCT U KETONE neg Negative - Negative POCT U BLD neg Negative - Negative Specimen Urine - URINE, CLEAN CATCH documented in this encounter Visit Diagnoses Diagnosis Asthma affecting in first trim rell - Primary Bipolar 1 disorder Bipolar I disorder, most recent episode (or current) unspecified Supervision of high risk in fi rst trimester Unspecified high-risk documented in this encounter Insurance Payer Benefit Plan / Subscriber ID Effective Phone Address T ype Group Dates KYLE WRIGHT [id number] 2020-Brisa DONATO Medic aid [facility] [place] [facility] [place] [id number] MANAGED MEDICAID [place] documented as of this encounter
--- OUTSIDE RECORDS SUMMARY | 2020-04-15 07:53 | XMS REPORT | Summary of Care ---
:1999 Author Organization [facility] [employer] Address [address] [place] [address] Care Team Providers Name Role Phone Pcp, Patient Does Not Have A Primary Care Provider +1-000-00 0-0000 Reason for Visit Reason Comments Lab Results Encounter Details Date Type Department Care Team Description 04/01/2020 Telephone [facility] RM[facility]- A Layla Mercado FNP Lab Results [address] [facility] [address] [place] [address] [facility] A [phone] [place], [place] [address] [phone] Allergies No Known Allergiesdocumented as of this encounter (statuses as of 04/02/2020) Medications Medication Sig Dispensed Refills Start Date [...] as of this encounter (statuses as of 04/02/2020) Active Problems Problem Noted Date HIV-1 antibody assay indeterminate 04/01/2020 Atypical squamous cell of undetermined significance of [...] as of this encounter (statuses as of 04/02/2020) Immunizations Name Administration Dates Next Due Influenza [...] this encounter Miscellaneous Notes Telephone Encounter - Patsy Loaiza LVN - 04/02/2020 9:50 AM Angel Harrington is a 20 year old female Informed patient of results and recommendations, informed labs can be redrawn at next visit, verbalized understanding. elephone Encounter - Shereen Myrick - 04/02/2020 9:32 AM Angel Harrington is a 20 year old female is returning the call from the nurse. Please callback. Thank you. elephone Encounter - Juan Diego Lantigua RN - 04/02/2020 8:15 AM CDTCalled patient, no answer. Left leticia. JUAN DIEGO LANTIGUA RN 04/02/2020 8:15 AM Telephone Encounter - Layla Hannah FNP - 04/01/2020 4:03 PM CDTInitial HIV antigen reactive, however all confirmatory testing negative at this time. This is likelya false positive. Recommendation is to repeat HIV testing in 1 month and again in 3 months. documented in this encounter Plan of Treatment Date Type Specialty Care Team Description 04/16/2020 Routine Visit [facility] Layla Hannah FNP [address] [place], [place] [address] [phone] 05/06/2020 Moveman Visit Maternal Medicine 05/06/2020 Moveman Visit [facility] Due Date Last Done Comments [...] YEARS 03/19/2021 03/19/2020 (yearly) PAP SMEAR 03/19/2023 03/19/2020, 03/19/2020 INFLUENZA VACCINE Completed 03/19/2020 MENINGOCOCCAL VACCINE Aged Out No longer eligible based on patient's age to complete this to pic documented as of this encounter Results Not on filedocumented in this encounter Visit Diagnoses Diagnosis HIV-1 antibody assay indeterminate - Char pizano documented in this encounter Insurance Payer Benefit Plan / Subscriber ID Effective Phone Address T ype Group Dates KYLE WRIGHT [id number] 2020-Brisa Richardson [address] Medic aid [facility] [place] [facility] [id number] MANAGED MEDICA[place] documented as of this encounter
[2020-04-15] MEDS ORDERED: ALBUTEROL 2.5 MG/3 ML NEB SOL ONE (08:32)
[2020-04-15] MEDS ORDERED: IPRATROPIUM BROM 0.5MG/2.5ML ONE (08:33)
[2020-04-15] MEDS ORDERED: FAMOTIDINE 20 MG TAB ONE (08:33)
[2020-04-15] MEDS ORDERED: predniSONE 20 MG TAB ONE (08:33)
--- NOTE | 2020-04-15 08:47 | EDPHYS ---
Physician Documentation [facility] Name: Saloni Harrington Age: 20 yrs Sex: Female : 2000 Arrival Date: 04/15/2020 Time: 07:29 Bed 5 Private MD: ED Physician Karson Gay HPI: 04/15 07:39 This 20 yrs old Black Female presents to ER via Ambulatory with complaints of Asthma kdr Exacerbation. 07:39 The patient presents to the emergency department with wheezing, Current therapy: kdr albuterol inhaler, that began without any particular precipitating event, at rest, the patient was reported to have chest tightness, trouble breathing, Pre-hospital care: rescue inhaler, Old and probably empty. Onset: The symptoms/episode began/occurred suddenly, this morning. Modifying factors: The symptoms are alleviated by nothing, the symptoms are aggravated by exertion. Associated signs and symptoms: The patient has no apparent associated signs or symptoms. Severity of symptoms: At their worst the symptoms were mild moderate just prior to arrival, in the emergency department the symptoms are unchanged. The patient has experienced similar episodes in the past, a few times. The patient is 10 weeks and has had care with a visit scheduled for tomorrow. Historical: - Allergies: 07:37 No Known Allergies; hb - Home Meds: 07:37 Singulair Oral [Active]; Albuterol Inhl [Active]; hb - PMHx: 07:37 Asthma; hb - PSHx: 07:37 None; hb - Immunization history:: Adult Immunizations up to date. - Social history:: Smoking status: Patient denies any tobacco usage or history of. ROS: 07:39 Constitutional: Negative for fever, chills, and weight loss, Eyes: Negative for injury, kdr pain, redness, and discharge, ENT: Negative for injury, pain, and discharge, Neck: Negative for injury, pain, and swelling, Cardiovascular: Negative for chest pain, palpitations, and edema, Abdomen/GI: Negative for abdominal pain, nausea, vomiting, diarrhea, and constipation, Back: Negative for injury and pain, : Negative for injury, bleeding, discharge, and swelling, MS/Extremity: Negative for injury and deformity, Skin: Negative for injury, rash, and discoloration, Neuro: Negative for headache, weakness, numbness, tingling, and seizure activity. Psych: Negative for depression, anxiety, suicide ideation, homicidal ideation, and hallucinations, Allergy/Immunology: Negative for hives, rash, and allergies, Endocrine: Negative for neck swelling, polydipsia, polyuria, polyphagia, and marked weight changes, Hematologic/Lymphatic: Negative for swollen nodes, abnormal bleeding, and unusual bruising. 07:39 Respiratory: Positive for cough, with no reported sputum, dyspnea on exertion, wheezing, inspiratory, Negative for hemoptysis, orthopnea, pleurisy, sputum production. Exam: 07:39 Constitutional: This is a well developed, well nourished patient who is awake, alert, kdr and in no acute distress. Head/Face: Normocephalic, atraumatic. Eyes: Pupils equal round and reactive to light, extra-ocular motions intact. Lids and lashes normal. Conjunctiva and sclera are non-icteric and not injected. Cornea within normal limits. Periorbital areas with no swelling, redness, or edema. Neck: Trachea midline, no thyromegaly or masses palpated, and no cervical lymphadenopathy. Supple, full range of motion without nuchal rigidity, or vertebral point tenderness. No Meningismus. Chest/axilla: Normal chest wall appearance and motion. Nontender with no deformity. No lesions are appreciated. Cardiovascular: Regular rate and rhythm with a normal S1 and S2. No gallops, murmurs, or rubs. Normal PMI, no JVD. No pulse deficits. Abdomen/GI: Soft, non-tender, with normal bowel sounds. No distension or tympany. No guarding or rebound. No evidence of tenderness throughout. Back: No spinal tenderness. No costovertebral tenderness. Full range of motion. Skin: Warm, dry with normal turgor. Normal color with no rashes, no lesions, and no evidence of cellulitis. MS/ Extremity: Pulses equal, no cyanosis. Neurovascular intact. Full, normal range of motion. Neuro: Awake and alert, GCS 15, oriented to person, place, time, and situation. Cranial nerves II-XII grossly intact. Motor strength 5/5 in all extremities. Sensory grossly intact. Cerebellar exam normal. Normal gait. Psych: Awake, alert, with orientation to person, place and time. Behavior, mood, and affect are within normal limits. 07:39 Respiratory: the patient does not display signs of respiratory distress, Respirations: normal, Breath sounds: Very few scattered wheezing. Vital Signs: 07:34 BP 121 / 103; Pulse 73; Resp 18; Temp 99(TE); Pulse Ox 98% on R/A; Weight 63.5 kg; hb Height 5 ft. 3 in. (160.02 cm); Pain 2/10; 08:54 BP 136 / 99; Pulse 73; Resp 18; Pulse Ox 99% ; sv 07:34 Body Mass Index 24.80 (63.50 kg, 160.02 cm) hb MDM: 07:39 Data reviewed: vital signs, nurses notes. Counseling: I had a detailed discussion with kdr the patient and/or guardian regarding: the historical points, exam findings, and any diagnostic results supporting the discharge/admit diagnosis, the need for outpatient follow up. 08:47 Patient medically screened. kdr Administered Medications: 08:25 Drug: Albuterol - atroVENT (3:1) (2.5 mg - 0.5 mg) 3 ml Route: Nebulizer; vg1 08:50 Follow up: Response: No adverse reaction ph 08:25 Drug: predniSONE 60 mg Route: PO; vg1 08:50 Follow up: Response: No adverse reaction ph 08:25 Drug: Pepcid 20 mg Route: PO; vg1 08:50 Follow up: Response: No adverse reaction ph Disposition: 04/15/20 08:47 Discharged to Home. Impression: Asthma, Shortness of breath. - Condition is Stable. - Discharge Instructions: Shortness of Breath, [id number], Asthma, Adult, [id number]. - Prescriptions for Albuterol Sulfate 90 mcg/actuation Inhalation - inhale 1-2 puff by INHALATION route every 4-6 hours As needed; 2 Inhaler. - Medication Reconciliation Form, Thank You Letter form. - Follow up: Private Physician; When: 2 - 3 days; Reason: If symptoms return, Further diagnostic work-up, Recheck today's complaints, Continuance of care, Re-evaluation by your physician. Follow up: Jhoan Brennan MD; When: 2 - 3 days; Reason: If symptoms return, Further diagnostic work-up, Recheck today's complaints, Continuance of care, Re-evaluation by your physician. - Problem is an acute exacerbation. - Symptoms have improved. Signatures: Sandy Amaral RN RN sv Karson Gay MD MD [facility] Saadia Serna RN RN Shasta Cook RN RN 1 Va Romero RN ph Corrections: (The following items were deleted from the chart) 08:54 08:47 04/15/2020 08:47 Discharged to Home. Impression: Asthma; Shortness of breath. sv Condition is Stable. Forms are Medication Reconciliation Form, Thank You Letter, Antibiotic Education, Prescription Opioid Use. Follow up: Private Physician; When: 2 - 3 days; Reason: If symptoms return, Further diagnostic work-up, Recheck today's complaints, Continuance of care, Re-evaluation by your physician. Follow up: Jhoan Brennan; When: 2 - 3 days; Reason: If symptoms return, Further diagnostic work-up, Recheck today's complaints, Continuance of care, Re-evaluation by your physician. Problem is an acute exacerbation. Symptoms have improved. kdr
--- NOTE | 2020-04-15 08:47 | ER ---
Nurse's Notes [facility] Name: Saloni Harrington Age: 20 yrs Sex: Female : 2000 Arrival Date: 04/15/2020 Time: 07:29 Bed 5 Private MD: Diagnosis: Asthma;Shortness of breath Presentation: 04/15 07:34 Chief complaint: SOB and chest tightness upon waking today. Hx of asthma, reports this hb feels like her normal asthma flare up, could not find albuterol inhaler. Coronavirus screen: difficulty breathing, Client presents with at least one sign or symptom that may indicate coronavirus-19. Standard/surgical mask placed on the client. Provider contacted for isolation considerations. Ebola Screen: No symptoms or risks identified at this time. Initial Sepsis Screen: Does the patient meet any 2 criteria? Yes Does the patient have a suspected source of infection? No. Patient's initial sepsis screen is negative. Risk Assessment: Do you want to hurt yourself or someone else? Patient reports no desire to harm self or others. Onset of symptoms was April 15, 2020. 07:34 Method Of Arrival: Ambulatory 07:34 Acuity: DIANNA 3 hb Historical: - Allergies: 07:37 No Known Allergies; hb - Home Meds: 07:37 Singulair Oral [Active]; Albuterol Inhl [Active]; hb - PMHx: 07:37 Asthma; hb - PSHx: 07:37 None; hb - Immunization history:: Adult Immunizations up to date. - Social history:: Smoking status: Patient denies any tobacco usage or history of. Screenin:00 Abuse screen: Denies threats or abuse. Denies injuries from another. Nutritional ph screening: No deficits noted. Tuberculosis screening: No symptoms or risk factors identified. Fall Risk None identified. Assessment: 07:37 Reassessment: Per Dr. Gay, isolation not necessary. hb 08:00 General: Appears in no apparent distress. Behavior is calm, cooperative, appropriate ph for age, Denies fever, feeling ill. Pain: Denies pain. Neuro: Level of Consciousness is awake, alert, obeys commands, Oriented to person, place, time, situation. Cardiovascular: Capillary refill < 3 seconds in bilateral fingers Patient's skin is warm and dry. Respiratory: Reports shortness of breath at rest Airway is patent Respiratory effort is even, unlabored. GI: No signs and/or symptoms were reported involving the gastrointestinal system. Derm: Skin is intact, is healthy with good turgor, Skin is pink, warm \T\ dry. Musculoskeletal: Circulation, motion, and sensation intact. Range of motion: intact in all extremities. Vital Signs: 07:34 BP 121 / 103; Pulse 73; Resp 18; Temp 99(TE); Pulse Ox 98% on R/A; Weight 63.5 kg; hb Height 5 ft. 3 in. (160.02 cm); Pain 2/10; 08:54 BP 136 / 99; Pulse 73; Resp 18; Pulse Ox 99% ; sv 07:34 Body Mass Index 24.80 (63.50 kg, 160.02 cm) hb ED Course: 07:29 Patient arrived in ED. mr 07:35 Karson Gay MD is Attending Physician. kdr 07:36 Triage completed. hb 07:37 Arm band placed on. hb 07:41 Va Romero RN is Primary Nurse. ph 08:00 Patient has correct armband on for positive identification. Bed in low position. Call ph light in reach. Side rails up X 1. Pulse ox on. NIBP on. 08:46 Jhoan Bernnan MD is Referral Physician. kdr 08:54 No provider procedures requiring assistance completed. Patient did not have IV access sv during this emergency room visit. Administered Medications: 08:25 Drug: Albuterol - atroVENT (3:1) (2.5 mg - 0.5 mg) 3 ml Route: Nebulizer; vg1 08:50 Follow up: Response: No adverse reaction ph 08:25 Drug: predniSONE 60 mg Route: PO; vg1 08:50 Follow up: Response: No adverse reaction ph 08:25 Drug: Pepcid 20 mg Route: PO; vg1 08:50 Follow up: Response: No adverse reaction ph Outcome: 08:47 Discharge ordered by . kdr 08:53 Discharged to home ambulatory. sv 08:53 Condition: stable 08:53 Discharge instructions given to patient, Instructed on discharge instructions, follow up and referral plans. medication usage, Demonstrated understanding of instructions, follow-up care, medications, Prescriptions given X 1. 08:54 Patient left the ED. sv Signatures: Sandy Amaral RN RN Karson Boggs MD MD kdr Rivera, Vikki mr Nick, Va, RN RN ph Saadia Serna, SHERI RN brian Cook, Shasta, RN RN vg1
[2020-04-15 09:00] VITALS: TEMP 99
[2020-04-15 09:02] VITALS: BP 136/99; O2SAT 99
== END 2020-04-15 08:54 | disposition home or self-care (01) ==
LOC: ER 07:26
DX: O99.511 Diseases of the respiratory system complicating pregnancy, first trimester (principal); J45.901 Unspecified asthma with (acute) exacerbation; Z3A.10 10 weeks gestation of pregnancy
CPT/HCPCS: 99284; J7512

== ENCOUNTER 2020-04-23 21:30 | Emergency (ER) | payer MEDICAID, OTHER ==
--- OUTSIDE RECORDS SUMMARY | 2020-04-23 21:32 | XMS REPORT | Summary of Care ---
:2000 Author Organization [facility] Address [address] [place] [id number] Care Team Providers Name Role Phone Pcp, Patient Does Not Have A Primary Care Provider +1-000-00 0-0000 Reason for Referral (Routine) Status Reason Specialty Diagnoses / Referred By Referred To Procedures Contact Contact New Request Maternal Diagnoses Supervision of high risk in first trimester Layla Hannah Procedures CONSULT MATERNAL MEDICINE ULTRASOUND Preferred Location: [facility] [address] [facility] [place] [address] Reason for Visit Reason Comments Initial Visit Encounter Details Date Type Department Care Team Description 03/19/2020 Initial [facility]- Layla Hannah pervision of high risk in first trimester (Primary Dx); Visit [facility] History of marijuana use; [address] Bipolar 1 disorder; [facility] A Depression with anxiety; [place], [place]opted; [phone] Asthma affecting in first trim rell; [phone] BMI 25.0-25.9,adult; [phone] Screening for v iral disease; (Fax) Need [...] in this encounter Progress Notes Layla Hannah, REFRIGERATOR MOVER - 03/19/2020 1:45 PM CDT Chief complaint: [...] file Gets together: Not on file Attends judaism service: Not on file Active member of [...] - CONSULT MATERNAL MEDICINE ULTRASOUND Preferred Location: [place] - CBC WITH DIFF - HEPATITIS B [...] influenza Administered today. VSS provided. - FLU VACC([id number]), 6+ MONTHS, IM, QUAD (FLUZONE/FLULAVAL/FLUARIX) Return to [...] 04/16/2020 Routine Visit [facility] Layla Hannah, REFRIGERATOR MOVER [address] [place], [place] [address] [phone] Name Type Priority Associated Diagnoses Date/Ti me [...] VACC Routine 03/19/2020 2:21 Need for prophylactic ([id number]), 6+ PM CDT vaccination and MONTHS, IM, [...] Address T ype Group Dates KYLE WRIGHT [id number] 2020-Brisa [place] [facility] [place] [id number] MANAGED MEDICAID [place] documented as of this encounter
--- OUTSIDE RECORDS SUMMARY | 2020-04-23 21:32 | XMS REPORT | Summary of Care ---
:2000 Author Organization [facility] Address [address] [place] [address] Care Team Providers Name Role Phone Pcp, Patient Does Not Have A Primary Care Provider +1-000-00 0-0000 Reason for Visit Reason Comments Appointment Referral/consult Encounter Details Date Type Department Care Team Description 03/19/2020 Telephone [facility] Layla Hannah, [place] ointment; [facility] Referral/consult [id number] [place], [place] [phone] Allergies No Known Allergiesdocumented as of this [...] and verification. Please contactpatient if needed at [phone] (home) KF documented in this encounter Plan of Treatment Date Type Specialty Care Team Description 04/16/2020 Routine Visit [facility] Layla Hannah FNP [address] [facility] [place], [place] [address] [phone] 05/06/2020 Service Station Attendant Visit Maternal Medicine 05/06/2020 Service Station Attendant Visit [facility] Lab/[facility] Health Maintenance [...] Address T ype Group Dates KYLE WRIGHT [id number] 2020-[address] [place] [id number] [place]ED MEDICA[place], [place] documented as of this encounter
--- OUTSIDE RECORDS SUMMARY | 2020-04-23 21:32 | XMS REPORT | Summary of Care ---
:2000 Author Organization [facility] Address [address] [place] [address] Care Team Providers Name Role Phone Pcp, Patient Does Not Have A Primary Care Provider +1-000-00 0-0000 Encounter Details Date Type Department Care Team Description 03/19/2020 Orders Only [facility] Doctor Unassigned, No [address] [facility] [place] [address] [address] [place] [address] Allergies Not on Filedocumented as of this [...] Arrived [address] [place], [place] [address] [phone] Health Maintenance Due Date Last Done Comments [...] / Subscriber ID Effective Phone Address [facility] Group Dates KYLE WRIGHT [id number] 2020-Brisa [address] [place] [id number] [place]ED MED[place] documented as of this encounter
--- OUTSIDE RECORDS SUMMARY | 2020-04-23 21:32 | XMS REPORT | Summary of Care ---
:2000 Author Organization [facility] Address [address] [place] [address] Care Team Providers Name Role Phone Pcp, Patient Does Not Have A Primary Care Provider +1-000-00 0-0000 Reason for Referral (Routine) Status Reason Specialty Diagnoses / Referred By Referred To Procedures Contact Contact New Request Maternal Diagnoses Supervision of high risk in first trimester Layla Hannah Procedures CONSULT MATERNAL MEDICINE ULTRASOUND Preferred Location: [facility] [address] [facility] [place] [address] Reason for Visit Reason Comments Initial Visit Encounter Details Date Type Department Care Team Description 03/19/2020 Initial [facility]- Layla Hannah pervision of high risk in first trimester (Primary Dx); Visit [facility] History of marijuana use; [address] Bipolar 1 disorder; [facility] A Depression with anxiety; [place], [place]opted; [phone] Asthma affecting in first trim rell; [phone] BMI 25.0-25.9,adult; [phone] Screening for v iral disease; (Fax) Need [...] in this encounter Progress Notes Layla Hannah, MINILAB OPERATOR - 03/19/2020 1:45 PM CDT Chief complaint: [...] file Gets together: Not on file Attends pentecostal service: Not on file Active member of [...] - CONSULT MATERNAL MEDICINE ULTRASOUND Preferred Location: [place] - CBC WITH DIFF - HEPATITIS B [...] influenza Administered today. VSS provided. - FLU VACC([id number]), 6+ MONTHS, IM, QUAD (FLUZONE/FLULAVAL/FLUARIX) Return to [...] 04/16/2020 Routine Visit [facility] Layla Hannah, MINILAB OPERATOR [address] [place], [place] [address] [phone] Name Type Priority Associated Diagnoses Date/Ti me [...] VACC Routine 03/19/2020 2:21 Need for prophylactic ([id number]), 6+ PM CDT vaccination and MONTHS, IM, [...] Address T ype Group Dates KYLE WRIGHT [id number] 2020-Brisa DON[place] [id number] MA[place]ED MEDICAID [place] documented as of this encounter
--- OUTSIDE RECORDS SUMMARY | 2020-04-23 21:33 | XMS REPORT | Summary of Care ---
:1999 Author Organization [facility] Address [address] [place] [id number] Care Team Providers Name Role Phone Pcp, Patient Does Not Have A Primary Care Provider +1-000-00 0-0000 Reason for Visit Reason Comments Care Encounter Details Date Type Department Care Team Description 04/16/2020 Routine [facility]- Layla Hannah pervision of high risk in first trimester (Primary Dx); Visit YANA Monroy HIV-1 antibody assay indeterminate; [address] [place] [address] [id number] Allergies No Known Allergiesdocumented as of this encounter (statuses as of 04/16/2020) Medications Medication Sig Dispensed Refills Start Date [...] as of this encounter (statuses as of 04/16/2020) Active Problems Problem Noted Date HIV-1 antibody [...] as of this encounter (statuses as of 04/16/2020) Immunizations Name Administration Dates Next Due Influenza [...] been in contact with No / Unsure 04/16/2020 10:56 AM CDT someone who was confirmed or suspected to have Coronavirus / COVID-19? documented as of this encounter Last Filed Vital Signs Vital Sign Reading Time Taken Comments Blood Pressure 130/79 04/16/2020 10:56 AM CDT Pulse 80 04/16/2020 10:56 AM CDT Temperature 36.6 C (97.9 F) 04/16/2020 10:56 AM CDT Respiratory Rate 16 04/16/2020 10:56 AM CDT Oxygen Saturation - - Inhaled Oxygen Concentration - - Weight 64.6 kg (142 lb 7 oz) 04/16/2020 10:56 AM CDT Height 160 cm (5' 3") 04/16/2020 10:56 AM CDT Body Mass Index 25.23 04/16/2020 10:56 AM CDT documented in this encounter Progress Notes Layla Hannah FNP - 04/16/2020 11:00 AM CDT Chief complaint: Chief Complaint Patient presents with Care HPI Saloni Harrington is a 20 year old female is a @ 9w6d here for visit. Patient's last menstrual period was 02/07/2020 (exact date). Estimated Date of Delivery: 11/13/20 Today she denies any complaints or concerns. She is taking PNV. She does not yet endorse FM. She denies any ctx/cramping, VB, LOF, MYERS, visual disturbance, vaginal discharge or dysuria. She denies any foreign travel. She also denies any physical, sexual or emotional abuse. 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 Radiology Radiology pending. Allergies Saloni has No Known Allergies. Medications Saloni has a current medication list which includes the following prescription(s): montelukast, albuterol, inhaler,assist device,accesory, and vitafol ultra. Review of Systems Constitutional: Negative for appetite change, fatigue and fever. Eyes: Negative for visual disturbance. Respiratory: Positive for shortness of breath. Cardiovascular: Negative for palpitations and leg swelling. Gastrointestinal: Negative for abdominal pain, constipation, diarrhea, nausea and vomiting. Genitourinary: Negative. Negative for dysuria, vaginal bleeding, vaginal discharge and pelvic pain. Musculoskeletal: Negative. Skin: Negative for rash. Neurological: Negative for dizziness, light-headedness and headaches. Psychiatric/Behavioral: Negative. BP 130/79 (BP Location: Right arm, Patient Position: Sitting, BP CUFF SIZE: Adult Medium) | Pulse 80 | Temp 36.6 C (97.9 F) (Oral) | Resp 16 | Ht 5' 3" (1.6 m) | Wt 142 lb 7 oz (64.6 kg) | LMP 02/07/2020 (Exact Date) | BMI 25.23 kg/m Pregravid BMI: 25.69 Physical Exam Vitals reviewed. Constitutional: She is oriented to person, place, and time. She appears well- developed and well-nourished. See flowsheet Cardiovascular: No peripheral edema present. Pulmonary/Chest: Normal inspiratory effort. Abdominal: Abdomen is soft. Neuro/Psychiatric: She has a normal mood and affect. She is oriented to person, place, and time. Skin: Skin normal. Assessment/Plan 1. Supervision of high risk in first trimester 9w6d Dating and NT scan scheduled - POCT URINALYSIS W/O SPECIFIC GRAVITY - HIV 1/2 AG-AB WITH REFLEX 2. HIV-1 antibody assay indeterminate Repeat HIV workup ordered today 3. Asthma affecting in first trimester S/p high risk consult, started on singulair daily and has PRN albuterol inhaler Reports symptoms are worst around 4-7 am daily, denies daytime symptoms Uses Albuterol inhaler about every other day Reports she did go to the hospital yesterday for a breathing treatment because she couldn't find herinhaler, she now has found her inhaler. Instructed to notify clinic if symptoms worsening or using PRN inhaler more frequently Return to clinic in 4 weeks. Reviewed patient instructions and provided printed copy. at 9w6d This visit did not involve counseling and coordination that comprised more than 50% of the visit time. documented in this encounter Plan of Treatment Date Type Specialty Care Team Description 05/06/2020 Tetryl Nitrator Operator Visit Maternal Medicine 05/06/2020 Tetryl Nitrator Operator Visit [facility] Lab/Cameron Wallace-Rmchp 05/14/2020 Routine Visit [facility] Layla Hannah FNP [address] [place], [place] [address] [phone] Name Type Priority Associated Diagnoses Date/Ti me HIV 1/2 AG-AB WITH LAB Routine Supervision of high amy reeves 04/16/2020 11:21 AM CDT REFLEX in first trimester Health Maintenance Due Date Last Done Comments PNEUMOCOCCAL 0-64 YEARS 02/09/2021 Postpone d from 2005 COMBINED SERIES (1 of 1 - (Pregn ant or PPSV23) ) HPV VACCINES (1 - 2-dose 03/10/2021 Postpon [...] to pic documented as of this encounter Procedures Procedure Name Priority Date/Time Associated Diagnosis Comme nts POCT URINALYSIS W/O Routine 04/16/2020 10:57 Supervision of hi gh Results for this SPECIFIC GRAVITY AM CDT risk in proced ure are in first trimester the results section. documented in this encounter Results POCT URINALYSIS W/O SPECIFIC GRAVITY (04/16/2020 10:57 AM CDT) Pathologist Sig nature POCT PH U . 5 - 8 mg/dl POCT U LEUK EST . Negative - Negative POCT U NIT . Negative - Negative POCT U PROT trace Negative - Negative POCT U GLU neg Negative - Negative POCT U KETONE . Negative - Negative POCT U BLD .. Negative - Negative Specimen Urine - URINE, CLEAN CATCH documented in this encounter Visit Diagnoses Diagnosis Supervision of high risk in fi rst trimester - Primary Unspecified high-risk HIV-1 antibody assay indeterminate Asthma affecting in first trim rell documented in this encounter Insurance Payer Benefit Plan / Subscriber ID Effective Phone Address T ype Group Dates KYLE WRIGHT [id number] 2020-Prese [address] [place] [phone] MA[place] MED[place]ID [place] documented as of this encounter
--- OUTSIDE RECORDS SUMMARY | 2020-04-23 21:33 | XMS REPORT | Summary of Care ---
:1999 Author Organization [facility] Address [address] [place] [address] Care Team Providers Name Role Phone Pcp, Patient Does Not Have A Primary Care Provider +1-000-00 0-0000 Reason for Visit Reason Comments Rx Concern/Question prior auth needed for albute rol Encounter Details Date Type Department Care Team Description 03/25/2020 Telephone [facility] RMCHP- Layla Hannah, Rx Concern/Question [place] COOK HELPER FRUIT (prior auth needed for [address] albuterol) [place], [place] [phone] Allergies No Known Allergiesdocumented as of this [...] albuterol sulfate hfa Go to covermymeds HANNA [id number] signed by Elisabeth Perez at 03/25/2020 9:42 AM CDT documented in this encounter Plan of Treatment Date Type Specialty Care Team Description 04/16/2020 Routine Visit [facility] Layla Hannah , COOK HELPER FRUIT [address] [place], [place] [address] [phone] 05/06/2020 Performance Test Architect Visit Maternal Medicine 05/06/2020 Performance Test Architect Visit [facility] Lab/Pedi, Pea-Rmchp Health Maintenance [...] on patient's age to complete this to [facility] documented as of this encounter Results Not on filedocumented in this encounter Insurance Payer Benefit Plan / Subscriber ID Effective Phone Address T e Group Dates KYLE WRIGHT [id number] 2020-Brisa DONATO Medic [place] [id number] MA[place] MEDICAID [place] documented as of this encounter
--- OUTSIDE RECORDS SUMMARY | 2020-04-23 21:33 | XMS REPORT | Summary of Care ---
:1999 Author Organization [facility] Address [address] [place] [address] Care Team Providers Name Role Phone Pcp, Patient Does Not Have A Primary Care Provider +1-000-00 0-0000 Reason for Visit Reason Comments ABNORMAL PAP Encounter Details Date Type Department Care Team Description 03/30/2020 Telephone [facility] RMCHP- A Layla Mercado, YANA ABNORMAL PAP [address] [place] [address]55 [facility] [phone] [place], [place] [address] [phone] Allergies No Known Allergiesdocumented as of this [...] [address] [place] [address] [phone] 05/06/2020 Security Screener Visit Maternal Medicine 05/06/2020 Security Screener Visit [facility] Lab/Pedi, Pea-Rmchp Health Maintenance [...] on patient's age to complete this to [facility] documented as of this encounter Results Not on filedocumented in this encounter Visit Diagnoses Diagnosis Atypical squamous cell of undetermined s ignificance of cervix - Primary Papanicolaou smear of cervix with atypic al squamous cells of undetermined significance (ASC-US) documented in this encounter Insurance Payer Benefit Plan / Subscriber ID Effective Phone Address T e Group Dates KYLE WRIGHT [id number] 2020-Brisa [address] Medic [place] [id number] [place] MEDICA[place] documented as of this encounter
--- OUTSIDE RECORDS SUMMARY | 2020-04-23 21:33 | XMS REPORT | Summary of Care ---
:1999 Author Organization [facility] Address [address] [place] [address] Care Team Providers Name Role Phone Pcp, Patient Does Not Have A Primary Care Provider +1-000-00 0-0000 Reason for Visit Reason Comments MFM Visit Encounter Details Date Type Department Care Team Description 03/26/2020 Routine [facility]- Dia, Pascual Uriarte, [facility] [address] [place] [address] Asthma affecting in first trim rell (Primary Dx); Visit [facility] Cxn-Njiuu-Iq/High Bipolar 1 disorder; [address] [facility] Supervisi on of high [place] [address] Allergies No Known Allergiesdocumented as [...] file Gets together: Not on file Attends religion service: Not on file Active member of [...] Routine Visit [facility] Layla Hannah , HEAT AND FROST INSULATOR [address] [place], [place] [address] [phone] 05/06/2020 Quality Control Inspector Heading Visit Maternal Medicine 05/06/2020 Quality Control Inspector Heading Visit [facility] Lab/Pedi, Pea-Rmchp Health Maintenance [...] on patient's age to complete this to [facility] documented as of this encounter Procedures Procedure Name Priority Date/Time Associated Diagnosis Comme nts POCT URINALYSIS W/O Routine 03/26/2020 10:45 Supervision of [facility] Results for this SPECIFIC GRAVITY AM [...] Address T ype Group Dates KYLE WRIGHT [id number] 2020-Brisa DONATO Medic aid [facility] [place] [phone] MANAGED MEDICAID [place] documented as of this encounter
--- OUTSIDE RECORDS SUMMARY | 2020-04-23 21:33 | XMS REPORT | Summary of Care ---
:1999 Author Organization [facility] Address [address] [place] [address] Care Team Providers Name Role Phone Pcp, [...] location: YANA Monroy [address] [place] [address] Reason for Visit Reason Comments Assessment using inhaler more than usua l Encounter Details Date Type Department Care Team Description 03/24/2020 Telephone [facility]- Layla Hannah, [place] essment (using [place] RAIL CAR DRIVER inhaler more than [address] usual) [place] [phone] Allergies No Known Allergiesdocumented as [...] pss will call to schedule appointment with [facility], ER warnings given, verbalized understanding. Telephone Encounter [...] Requesting to speak to nurse. Please call [phone] (home) documented in this encounter Plan of Treatment Date Type Specialty Care Team Description 03/26/2020 Routine Visit [facility] Lonnie PandyaGzr-Owegz-Np/High 04/16/2020 Routine Visit [facility] Layla Hannah FNP [address] [place], [place] [address] [phone] 05/06/2020 Vending Machine Refiller Visit Maternal Medicine 05/06/2020 Vending Machine Refiller Visit [facility] Lab/Pedi, Pea-Rmchp Health Maintenance [...] on patient's age to complete this to [facility] documented as of this encounter Results Not on filedocumented in this encounter Visit Diagnoses Diagnosis Asthma affecting in first trim rell - Primary Bipolar 1 disorder Bipolar I disorder, most recent episode (or current) unspecified Depression with anxiety Dysthymic disorder documented in this encounter Insurance Payer Benefit Plan / Subscriber ID Effective Phone Address T [facility] Group Dates KYLE WRIGHT [id number] 2020-Brisa [address] BOX Medic aid [facility] [place] [address] MA[place]GED MEDICAID [place] documented as of this encounter
--- OUTSIDE RECORDS SUMMARY | 2020-04-23 21:33 | XMS REPORT | Summary of Care ---
:1999 Author Organization [facility] Address [address] [place] [address] Care Team Providers Name Role Phone Pcp, Patient Does Not Have A Primary Care Provider +1-000-00 0-0000 Reason for Visit Reason Comments Assessment Encounter Details Date Type Department Care Team Description 04/23/2020 Telephone [facility] RMCHP- A Layla Mercado, WOOL CLEANER Assessment [address] [facility] [address] [place] [address]55 [facility] [phone] [place], [place] [address] [phone] Allergies No Known Allergiesdocumented as of this encounter (statuses as of 04/23/2020) Medications Medication Sig Dispensed Refills Start Date [...] daily. tabletIndications: Asthma affecting in first trimester fluticasone Inhale 2 Puffs 2 10.6 g 0 04/23/2020 Active propionate 44 (two) times daily. mcg/actuation inhalerIndications: Asthma affecting in first trimester documented as of this encounter (statuses as of 04/23/2020) Active Problems Problem Noted Date HIV-1 antibody [...] as of this encounter (statuses as of 04/23/2020) Immunizations Name Administration Dates Next Due Influenza [...] this encounter Miscellaneous Notes Telephone Encounter - Elisabeth Perez - 04/23/2020 3:09 PM CDTAppointment made patient informed elephone Encounter - Patsy Loaiza LVN - 04/23/2020 10:13 AM Angel Len is a 20 year old female Informed patient of new orders and recommendations, informed pss will call with appointment. ER warnings given, verbalized understanding. elephone Encounter - Layla Hannah FNP - 04/23/2020 9:46 AM CDTConsulted with Bentley CACERES, recommend starting flovent 2 puffs BID and f/u with high risk in 1-2weeks. ER warnings for symptoms not managed with medication. Notify us sooner if not seeing improvement. Continue singulair daily and albuterol PRN. elephone Encounter - Patsy Loaiza LVN - 04/23/2020 9:00 AM Ifeomasonny Harrington is a 20 year old female Patient stated she has been having to use her inhaler every night since 04/16/2020. Denies any othersymptoms, stated she only has to use it at night and feels like inhaler is not really helping. Informed patient message would be routed to provider for recommendations, verbalized understanding. elephone Encounter - Celine Ayala - 04/23/2020 8:41 AM Ifeomasonny Harrington is a 20 year old female Patient requesting to speak with provider, patient has been using the inhaler every night and was told by provider to let her know when this start to happened. Please call patient [phone] (home) documented in this encounter Plan of Treatment Date Type Specialty Care Team Description 05/06/2020 Audit Spec Visit Maternal Medicine 05/06/2020 Audit Spec Visit [facility] Lab/Cameron Wallace-Cheryl 05/11/2020 Routine Visit [facility] Faculty, Lonnie Angel 05/14/2020 Routine Visit [facility] Layla Hannah FNP [address] [place], [place] [address] [phone] Health Maintenance Due Date Last Done Comments [...] affecting in first trim rell - Primary documented in this encounter Insurance Payer Benefit Plan / Subscriber ID Effective Phone Address T anaya Group Dates KYLE WRIGHT [id number] 2020-Brisa [place] [address] Medic [place] [id number] MA[place]ED MEDICA[place] documented as of this encounter
--- OUTSIDE RECORDS SUMMARY | 2020-04-23 21:33 | XMS REPORT | Summary of Care ---
:1999 Author Organization [facility] [employer] Address [address] [place] [address] Care Team Providers Name Role Phone Pcp, Patient Does Not Have A Primary Care Provider +1-000-00 0-0000 Reason for Visit Reason Comments Lab Results Encounter Details Date Type Department Care Team Description 04/01/2020 Telephone [facility] RMCHP- A Layla Mercado FNP Lab Results [address] [facility] [address] [place] [address] 955 [facility] A [phone] [place], [place] [address] [phone] Allergies No Known Allergiesdocumented as of this [...] Routine Visit [facility] Layla Hannah FNP [address] [place], [place] [address] [phone] 05/06/2020 Glue Reel Operator Visit Maternal Medicine 05/06/2020 Glue Reel Operator Visit [facility] Due Date Last Done [...] Address T ype Group Dates KYLE WRIGHT [id number] 2020-Brisa Richardson O BOX Medic aid [facility] [place] [address] MA[place] MEDICAID [place] documented as of this encounter
--- OUTSIDE RECORDS SUMMARY | 2020-04-23 21:33 | XMS REPORT | Continuity of Care Document ---
:1999 Author Organization [facility] t Address [address] [place] [address] Care Team Providers Name Role Phone Ashanti [...] Date/Time Type Type Clinicians Facility Department ID 2020-04-23 2020-04-23 Telephone MANUEL Hannah [id number] 00:00:00 00:00:00 Layla Burrell CUSTOMER SERVICE SALES CONSULTANT [id number] REGIONAL [id number] MATERNAL [phone] & CHILD [address] [facility] 2020-04-16 2020-04-16 Routine [place] [facility] [id number] 10:50:07 11:25:08 Layla Burrell CUSTOMER SERVICE SALES CONSULTANT [id number] Visit REGIONAL [id number] MATERNAL [id number] & CHILD [address] [facility] 2020-04-01 2020-04-01 Telephone MANUEL Hannah [id number] 00:00:00 00:00:00 Layla Burrell CUSTOMER SERVICE SALES CONSULTANT [id number] REGIONAL [id number] MATERNAL [phone] & CHILD [address] [facility] 2020-03-30 2020-03-30 Telephone [place] [facility] [id number] 00:00:00 00:00:00 Layla N CUSTOMER SERVICE SALES CONSULTANT [id number] REGIONAL [id number] MATERNAL [phone] & CHILD [address] [facility] 2020-03-26 2020-03-26 Routine , [facility] [id number] 10:30:10 10:55:08 Ang-Rmchp-N CUSTOMER SERVICE SALES CONSULTANT [id number] Visit p/High REGIONAL [id number] MATERNAL [phone] & CHILD [address] [facility] 2020-03-25 2020-03-25 Telephone [place] [facility] [id number] 00:00:00 00:00:00 Layla N CUSTOMER SERVICE SALES CONSULTANT [id number] REGIONAL [id number] MATERNAL [id number] & CHILD 107 [facility] 2020-03-24 2020-03-24 [facility] [id number] 00:00:00 00:00:00 Layla N CUSTOMER SERVICE SALES CONSULTANT [id number] REGIONAL [id number] MATERNAL [phone] & CHILD 107 [facility] 2020-03-19 2020-03-19 Initial [place] [facility] [id number] 13:25:33 14:35:39 Layla N CUSTOMER SERVICE SALES CONSULTANT [id number] Visit REGIONAL [id number] MATERNAL [phone] & CHILD 107 [facility] 2020-03-19 2020-03-19 [facility] [id number] 00:00:00 00:00:00 Layla N CUSTOMER SERVICE SALES CONSULTANT [id number] REGIONAL [id number] MATERNAL [phone] & CHILD 107 [facility] Results This patient has no known results.
[2020-04-23 23:09] LABS: Basophils % 1.1 % (0-1.3); Hematocrit 37.8 % (36.0-45.0); Lymphocytes % 20.8 % (15.3-44.8); MPV 8.5 fL (7.6-11.3); RBC Red Blood Cell Count 4.33 M/uL (3.86-4.86)
--- NOTE | 2020-04-23 23:36 | ER ---
Nurse's Notes [facility] Name: Saloni Harrington Age: 20 yrs Sex: Female : 2000 Arrival Date: 04/23/2020 Time: 21:31 Bed 15 Private MD: Diagnosis: Threatened Presentation: 04/23 21:56 Chief complaint: Patient states: she is 11 weeks and was walking to the car dm5 when she started having vaginal bleeding she denies pain at this time. Coronavirus screen: At this time, the client does not indicate any symptoms associated with coronavirus-19. Ebola Screen: No symptoms or risks identified at this time. Initial Sepsis Screen: Does the patient meet any 2 criteria? No. Patient's initial sepsis screen is negative. Does the patient have a suspected source of infection? No. Patient's initial sepsis screen is negative. Risk Assessment: Do you want to hurt yourself or someone else? Patient reports no desire to harm self or others. Onset of symptoms was April 23, 2020. 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 - Social history:: Smoking status: Patient denies any tobacco usage or history of. Screenin:59 Abuse screen: Denies threats or abuse. Denies injuries from another. Nutritional ca1 screening: No deficits noted. Tuberculosis screening: No symptoms or risk factors identified. Fall Risk IV access (20 points). Assessment: 21:59 General: Appears in no apparent distress. comfortable, Behavior is calm, cooperative, ca1 appropriate for age. Pain: Denies pain. Neuro: Level of Consciousness is awake, alert, obeys commands, Oriented to person, place, time, situation. Cardiovascular: Heart tones S1 S2 present Capillary refill < 3 seconds Patient's skin is warm and dry. Respiratory: Airway is patent Respiratory effort is even, unlabored, Respiratory pattern is regular, symmetrical, Breath sounds are clear bilaterally. GI: Abdomen is round non-distended, Bowel sounds present X 4 quads. Abd is soft and non tender X 4 quads. : Reports vaginal bleeding that is bright red, light flow. EENT: No signs and/or symptoms were reported regarding the EENT system. Derm: Skin is intact, is healthy with good turgor, Skin is pink, warm \T\ dry. Musculoskeletal: Circulation, motion, and sensation intact. Capillary refill < 3 seconds. 22:25 Reassessment: US at bedside. ca1 22:51 Reassessment: Patient appears in no apparent distress at this time. Patient and/or ca1 family updated on plan of care and expected duration. Pain level reassessed. Patient is alert, oriented x 3, equal unlabored respirations, skin warm/dry/pink. 23:23 Reassessment: Patient appears in no apparent distress at this time. Patient is alert, ca1 oriented x 3, equal unlabored respirations, skin warm/dry/pink. Vital Signs: 21:56 BP 156 / 81; Pulse 112; Resp 16 S; Temp 99.3(O); Pulse Ox 100% on R/A; Weight 65.77 kg dm5 (R); Height 5 ft. 3 in. (160.02 cm); Pain 0/10; 22:51 BP 109 / 76; Pulse 90; Resp 16 S; Pulse Ox 100% on R/A; ca1 21:56 Body Mass Index 25.69 (65.77 kg, 160.02 cm) dm5 ED Course: 21:31 Patient arrived in ED. am2 21:33 Gabriele Goff MD is Attending Physician. tw4 21:41 Mariah Preciado, SHERI is Primary Nurse. ca1 21:57 Triage completed. dm5 21:58 Arm band placed on Patient placed in an exam room, on a stretcher, on pulse oximetry. dm5 22:00 Patient has correct armband on for positive identification. Placed in gown. Bed in low ca1 position. Call light in reach. Side rails up X 1. Pulse ox on. NIBP on. Warm blanket given. 22:08 Missed attempt(s): 20 gauge in left antecubital area. tt3 22:24 Missed attempt(s): 22 gauge in right antecubital area. Bleeding controlled, band aid ca1 applied, catheter tip intact. 22:48 No provider procedures requiring assistance completed. Initial lab(s) drawn, by me, ca1 sent to lab. Inserted saline lock: 22 gauge in right wrist, using aseptic technique. Blood collected. 22:53 OB Limited In Process Unspecified. EDMS 23:55 IV discontinued, intact, bleeding controlled, No redness/swelling at site. Pressure dm5 dressing applied. Administered Medications: No medications were administered Outcome: 23:35 Discharge ordered by . maria elena 23:56 Discharged to home ambulatory, with family. dm5 23:56 Condition: good 23:56 Discharge instructions given to patient, family, Instructed on discharge instructions, follow up and referral plans. Demonstrated understanding of instructions, follow-up care. 23:56 Patient left the ED. dm5 Signatures: Dispatcher [employer] EDMO Snow Snyder, RN RN dm5 Abby Richardson am2 Gabriele Goff MD MD tw4 Mariah Preciado RN RN ca1 Praveen Stark tt3
--- NOTE | 2020-04-23 23:36 | EDPHYS ---
Physician Documentation [facility] Name: Saloni Harrington Age: 20 yrs Sex: Female : 2000 Arrival Date: 04/23/2020 Time: 21:31 Bed 15 Private MD: ED Physician Gabriele Goff HPI: 04/23 23:13 This 20 yrs old Black Female presents to ER via Ambulatory with complaints of Vaginal tw4 Bleeding, + Preg <12wks. 23:13 The patient presents to the emergency department with vaginal bleeding. The patient tw4 presents to the emergency department with vaginal bleeding, that is light, with no clots. The estimated gestational age is 11 weeks. course: care: private OB physician, Dr. Hannah. Associated signs and symptoms: The patient has no apparent associated signs or symptoms. The patient has not experienced similar symptoms in the past. 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 - Social history:: Smoking status: Patient denies any tobacco usage or history of. ROS: 23:13 Constitutional: Negative for fever, chills, and weight loss, Eyes: Negative for injury, tw4 pain, redness, and discharge, Cardiovascular: Negative for chest pain, palpitations, and edema, Respiratory: Negative for shortness of breath, cough, wheezing, and pleuritic chest pain, Abdomen/GI: Negative for abdominal pain, nausea, vomiting, diarrhea, and constipation, Back: Negative for injury and pain. 23:13 : Positive for vaginal bleeding, Negative for injury or acute deformity, urinary symptoms, urinary frequency, small amounts, hematuria, vaginal discharge, vaginal itching, menstrual abnormality, missed period. Exam: 23:13 Constitutional: This is a well developed, well nourished patient who is awake, alert, tw4 and in no acute distress. Head/Face: Normocephalic, atraumatic. Chest/axilla: Normal chest wall appearance and motion. Nontender with no deformity. No lesions are appreciated. Cardiovascular: Regular rate and rhythm with a normal S1 and S2. No gallops, murmurs, or rubs. Normal PMI, no JVD. No pulse deficits. Respiratory: Lungs have equal breath sounds bilaterally, clear to auscultation and percussion. No rales, rhonchi or wheezes noted. No increased work of breathing, no retractions or nasal flaring. Abdomen/GI: Soft, non-tender, with normal bowel sounds. No distension or tympany. No guarding or rebound. No evidence of tenderness throughout. Back: No spinal tenderness. No costovertebral tenderness. Full range of motion. Skin: Warm, dry with normal turgor. Normal color with no rashes, no lesions, and no evidence of cellulitis. MS/ Extremity: Pulses equal, no cyanosis. Neurovascular intact. Full, normal range of motion. Neuro: Awake and alert, GCS 15, oriented to person, place, time, and situation. Cranial nerves II-XII grossly intact. Motor strength 5/5 in all extremities. Sensory grossly intact. Cerebellar exam normal. Normal gait. Vital Signs: 21:56 BP 156 / 81; Pulse 112; Resp 16 S; Temp 99.3(O); Pulse Ox 100% on R/A; Weight 65.77 kg dm5 (R); Height 5 ft. 3 in. (160.02 cm); Pain 0/10; 22:51 BP 109 / 76; Pulse 90; Resp 16 S; Pulse Ox 100% on R/A; ca1 21:56 Body Mass Index 25.69 (65.77 kg, 160.02 cm) dm5 MDM: 21:46 Patient medically screened. tw4 23:52 Data reviewed: vital signs, nurses notes, lab test result(s), CBC, hepatic panel, tw4 urinalysis, radiologic studies, ultrasound. Data interpreted: Pulse oximetry: Interpretation: normal. Counseling: I had a detailed discussion with the patient and/or guardian regarding: the historical points, exam findings, and any diagnostic results supporting the discharge/admit diagnosis, lab results, radiology results. Special discussion: I discussed with the patient/guardian in detail that at this point there is no indication for admission to the hospital. It is understood, however, that if the symptoms persist or worsen the patient needs to return immediately for re-evaluation. 04/23 21:34 Order name: Quantitative Hcg tw4 04/23 21:34 Order name: Abo/rh Typing tw4 04/23 21:34 Order name: Basic Metabolic Panel tw4 04/23 21:34 Order name: CBC with Diff tw4 04/23 23:38 Order name: Urine Dipstick--Ancillary (enter results) ar5 04/23 23:38 Order name: Urine --Ancillary (enter results) ar5 04/23 21:34 Order name: IV Saline Lock; Complete Time: 22:51 tw4 04/23 21:34 Order name: Labs collected and sent; Complete Time: 22:51 tw4 04/23 21:34 Order name: NPO; Complete Time: 21:56 tw4 04/23 21:34 Order name: Urine Dipstick-Ancillary (obtain specimen); Complete Time: 23:31 tw4 04/23 21:34 Order name: Urine Test (obtain specimen); Complete Time: 23:31 tw4 04/23 22:52 Order name: OB Limited EDMS Administered Medications: No medications were administered Disposition: 04/23/20 23:35 Discharged to Home. Impression: Threatened . - Condition is Stable. - Discharge Instructions: Threatened Miscarriage, Pelvic Rest, Vaginal Bleeding During , First Trimester, [id number]. - Medication Reconciliation Form, Thank You Letter, Antibiotic Education, Prescription Opioid Use form. - Follow up: Private Physician; When: Upon discharge from the Emergency Department; Reason: Recheck today's complaints, Continuance of care, Re-evaluation by your physician. - Problem is new. - Symptoms have improved. Signatures: Dispatcher [facility] Snow Snyder RN RN dm5 Gabriele Goff MD MD tw4 Corrections: (The following items were deleted from the chart) 22:52 21:56 OB Complete+US.RAD.BRZ ordered. [facility] 23:56 23:35 04/23/2020 23:35 Discharged to Home. Impression: Threatened . Condition dm5 is Stable. Forms are Medication Reconciliation Form, Thank You Letter, Antibiotic Education, Prescription Opioid Use. Follow up: Private Physician; When: Upon discharge from the Emergency Department; Reason: Recheck today's complaints, Continuance of care, Re-evaluation by your physician. Problem is new. Symptoms have improved. tw4
[2020-04-24] LABS: BUN Blood Urea Nitrogen 5 mg/dL (7-18); Bicarbonate 25 mmol/L (21-32); Glucose Level 89 mg/dL (74-106); HCG, Quantitative 37679 mIU/mL (1-3); Potassium 3.7 mmol/L (3.5-5.1); Sodium Level 137 mmol/L (136-145)
[2020-04-24 00:36] VITALS: TEMP 99.3; O2SAT 100
[2020-04-24 00:38] VITALS: BP 109/76
[2020-04-24 00:45] LABS: Urine Blood 2+ (NEG); Urine Glucose NEGATIVE (NEG); Urine Protein 1+ (NEG); Urine Specific Gravity 1.025 (1.005-1.030); Urine pH 5.5 (5.0-7.0)
--- NOTE | 2020-04-24 08:32 | RAD REPORT ---
EXAM DESCRIPTION: US - OB Limited - 04/23/2020 10:53 pm CLINICAL HISTORY: VAGINAL BLEEDING Pelvic pain COMPARISON: No comparisons FINDINGS: A single gestational sac is seen within the uterus. The shape of the sac is within normal limits for gestational age. Within the sac is a single pole with crown-rump length of 3.7 cm, c orrelating to estimated gestational age of 10 weeks 2 days. Estimated date of delivery is 11/17/2020. Heart rate is 179 BPM. The placenta is not yet developed due to early gestational age. The maternal adnexa and ovaries are within normal limits. Normal Doppler blood flow was demonstrated to both ovaries. Edematous appearance is seen to the lower cervical canal. IMPRESSION: Single live early intrauterine gestation with estimated gestational age of 10 weeks 2 da ys, DEEDEE 11/17/2020.
== END 2020-04-23 23:56 | disposition home or self-care (01) ==
LOC: ER 21:30
DX: O20.0 Threatened abortion (principal); O99.511 Diseases of the respiratory system complicating pregnancy, first trimester; J45.909 Unspecified asthma, uncomplicated; Z3A.10 10 weeks gestation of pregnancy
CPT/HCPCS: 36415; 76815; 80048; 81003; 81025; 84702; 85025; 86900; 86901; 99284